=== PATIENT | female | born 1970 | race American Indian/Alaskan Native ===

== ENCOUNTER 2016-05-31 12:26 | Emergency (ER) | payer MEDICAID ==
--- NOTE | 2016-05-31 15:35 | XRay Report ---
LEFT FINGERS, 3 VIEWS History: Swelling and pain of the fifth digit. Findings: There is mild motion artifact on the oblique and lateral views. No acute osseous injury or joint pathology is appreciated. The soft tissues are unremarkable. Impression: No acute osseous injury is appreciated.
--- NOTE | 2016-05-31 15:49 | Emergency Department Report ---
HPI - General Chief Complaint: Extremity Injury, Upper Time Seen by Provider: 05/31/16 13:55 - HPI HPI: 46-year-old female presents today with the left little finger pain post fall on Saturday. Patient states she landed on her left hand. Denies head injury or loss of consciousness. Positive for pain and swelling. Describes her pain as 7 out of 10 throbbing ache that is worse with movement. Denies numbness, weakness or paresthesias. Denies trying any medication for pain relief. Denies fever, chills, nausea, vomiting, chest pain, shortness of breath, abdominal pain. ED Past Medical Hx - Past Medical History Previous Medical History?: No - Surgical History Past Surgical History?: No - Social History Smoking Status: Current Every Day Smoker Substance Use Type: Alcohol, Marijuana - Medications Home Medications: Home Medications Medication Instructions Recorded Confirmed Last Taken Type HYDROcodone/APAP 5-325 [[place] 1 each PO Q6HR PRN #14 tablet 11/30/13 Unknown Rx 5/325] Misoprostol [Cytotec] 400 mcg PO Q4H #3 tablet 11/30/13 Unknown Rx Sulfamethoxazole/Trimethoprim 1 each PO BID #14 tablet 11/30/13 Unknown Rx [Bactrim Ds] Acetaminophen/Codeine [Tylenol #3] 1 tab PO Q6H PRN #20 tab 09/27/14 Unknown Rx Naproxen [Naprosyn] 500 mg PO BID #30 tablet 05/31/16 Unknown Rx ED Review of Systems ROS: Stated complaint: CANNOT BEND LEFT PINKY Other details as noted in HPI Constitutional: denies: chills, fever, malaise Eyes: denies: eye pain ENT: denies: ear pain, throat pain, congestion Respiratory: denies: cough, shortness of breath, wheezing Cardiovascular: denies: chest pain, palpitations Endocrine: no symptoms reported Gastrointestinal: denies: abdominal pain, nausea, vomiting Musculoskeletal: joint swelling, arthralgia Neurological: denies: headache, weakness, numbness, paresthesias Physical Exam - Physical Exam Vital Signs: Vital Signs 05/31/16 13:17 Temperature 98.4 F Pulse Rate 103 H Respiratory 16 Rate Blood Pressure 129/81 O2 Sat by Pulse 98 Oximetry Physical Exam: GENERAL: The patient is well-developed and well-nourished. Patient is in NAD. HEAD: Normocephalic. Atraumatic. CHEST/LUNGS: Clear to auscultation throughout. HEART/CARDIOVASCULAR: Regular rate and rhythm. ABDOMEN: Abdomen is soft, nontender. No guarding or rebound tenderness. LEFT HAND: Tenderness to palpation and swelling noted over the PIP joint of left fifth digit. Limited fifth digit range of motion. Range of motion otherwise intact. Normal sensation. 2 point discrimination intact. Peripheral pulses intact. Capillary refill less than 2 seconds. NEURO: Alert and oriented x 3. Normal gait. ED Course Vital Signs 05/31/16 13:17 Temperature 98.4 F Pulse Rate 103 H Respiratory 16 Rate Blood Pressure 129/81 O2 Sat by Pulse 98 Oximetry ED Medical Decision Making - Lab Data Vital Signs 05/31/16 05/31/16 13:17 16:11 Temperature 98.4 F Pulse Rate 103 H 91 H Respiratory 16 16 Rate Blood Pressure 129/81 Blood Pressure 126/78 [Right] O2 Sat by Pulse 98 99 Oximetry - Radiology Data Radiology results: report reviewed LEFT FINGERS, 3 VIEWS History: Swelling and pain of the fifth digit. Findings: There is mild motion artifact on the oblique and lateral views. No acute osseous injury or joint pathology is appreciated. The soft tissues are unremarkable. Impression: No acute osseous injury is appreciated. - Medical Decision Making 46-year-old female presents today with left fifth digit pain and swelling post fall. Her x-ray results reveal no fracture or dislocation. A referral for orthopedic has been provided. Patient is in no acute distress at this time. She will be discharged home and is encouraged to follow up with a primary care provider. She will be sent home on naproxen and is encouraged to return to the emergency room for any worsening symptoms. Critical care attestation.: If time is entered above; I have spent that time in minutes in the direct care of this critically ill patient, excluding procedure time. ED Disposition Clinical Impression: Finger pain Qualifiers: Laterality: left Qualified Code(s): M79.645 - Pain in left finger(s) Disposition: DISCHARGED TO HOME OR SELFCARE Is pt being admited?: No Does the pt Need Aspirin: No Condition: Stable Instructions: Finger Sprain (ED) Additional Instructions: Follow-up with primary care provider. Return to the emergency department if symptoms worsen. Prescriptions: Naproxen [Naprosyn] 500 mg PO BID #30 tablet Referrals: Jennifer HEARD [Other] - 3-5 Days [facility] [Outside] - 3-5 Days HOME CRAWFORD MD [Staff Physician] - 3-5 Days Forms: Work/School Release Form(ED) Time of Disposition: 15:50
[2016-05-31 16:12] VITALS: BP 126/78
== END 2016-05-31 16:11 | disposition home or self-care (01) ==
LOC: ED 12:26
DX: M79.645 Pain in left finger(s) (principal); F12.10 Cannabis abuse, uncomplicated; F17.200 Nicotine dependence, unspecified, uncomplicated; W18.30XA Fall on same level, unspecified, initial encounter; Y93.9 Activity, unspecified; Y92.9 Unspecified place or not applicable; Y99.9 Unspecified external cause status
CPT/HCPCS: 99283

== ENCOUNTER 2017-01-17 19:49 | Emergency (ER) | payer MEDICAID ==
[2017-01-17 21:55] VITALS: BP 118/67
[2017-01-17] MEDS ORDERED: TYLENOL ONE (22:07)
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
== END 2017-01-17 23:50 | disposition home or self-care (01) ==
LOC: ED 19:49
DX: S01.81XA Laceration without foreign body of other part of head, initial encounter (principal); F12.10 Cannabis abuse, uncomplicated; X58.XXXA Exposure to other specified factors, initial encounter; Y93.9 Activity, unspecified; Y92.9 Unspecified place or not applicable; Y99.9 Unspecified external cause status
CPT/HCPCS: 99282

== ENCOUNTER 2019-12-12 16:50 | Emergency (ER) | payer MEDICAID ==
[2019-12-12 17:12] VITALS: BP 130/76
--- NOTE | 2019-12-12 20:35 | Emergency Department Report ---
Minor Respiratory - HPI Chief Complaint: Upper Respiratory Infection Stated Complaint: CP/COUGH/SOB Time Seen by Provider: 12/12/19 20:07 Duration: 1 week Minor Respiratory: Yes Cough, No Rhinorrhea, No Sore Throat, No Able to Tolerate Fluids, No Ear Pain, No Sick Contacts, No Hemoptysis, No Chest Pain, No Shortness of Breath, No Fever Other History: 49-year-old -Sw[place] female comes to the emergency room stating that she is have coughing and bites all over her body.. She reports her cough is been going on for about a week and the bites has been gone over for quite a while. Patient states that she was using [id number] calamine lotion and hydrocortisone but has ran out of her hydrocortisone. Patient has not taken anything for her cough. Patient denies any shortness of breath no fever no chest pain no nausea no vomiting no diarrhea. Patient does report she smokes weed and smokes crack. Patient is unaware of her last menstrual period. Patient reports she does not have a primary care provider and was unaware that she had insurance. ED Review of Systems ROS: Stated complaint: CP/COUGH/SOB Other details as noted in HPI Comment: All other systems reviewed and negative ED Past Medical Hx - Past Medical History Previous Medical History?: No - Surgical History Past Surgical History?: No - Social History Smoking Status: Never Smoker Substance Use Type: Alcohol, Marijuana - Medications Home Medications: Home Medications Medication Instructions Recorded Confirmed Last Taken Type HYDROcodone/APAP 5-325 [[place] 1 each PO Q6HR PRN #14 tablet 11/30/13 Unknown Rx 5/325] Sulfamethoxazole/Trimethoprim 1 each PO BID #14 tablet 11/30/13 Unknown Rx [Bactrim Ds] miSOPROStoL [Cytotec] 400 mcg PO Q4H #3 tablet 11/30/13 Unknown Rx Acetaminophen/Codeine [Tylenol #3] 1 tab PO Q6H PRN #20 tab 09/27/14 Unknown Rx Naproxen [Naprosyn] 500 mg PO BID #30 tablet 05/31/16 Unknown Rx Ibuprofen [Motrin] 800 mg PO Q8HR PRN #30 tablet 06/25/16 Unknown Rx traMADoL [Ultram 50 MG tab] 50 mg PO Q6HR PRN #20 tablet 06/25/16 Unknown Rx Acetaminophen [Acetaminophen TAB] 500 mg PO Q6HR PRN #30 tablet 01/17/17 Unknown Rx Minor Respiratory Exam - Exam General: Vital signs noted. No distress. Alert and acting appropriately. HEENT: Yes Moist Mucous Membranes, No Pharyngeal Erythema, No Pharyngeal Exudates, No Rhinorrhea, No Conjuctival Injection, No Frontal Tenderness, No Maxillary Tenderness Ear: Neither EAC Pain, Neither EAC Discharge Neck: Yes Supple, No Adenopathy Lungs: Yes Good Air Exchange, No Wheezes, No Ronchi, No Stridor, No Cough, No Labored Respirations, No Retractions, No Use of Accessory Muscles, No Other Abnormal Lung Sounds Heart: Yes Regular, No Murmur Abdomen: Yes Normal Bowel Sounds, No Tenderness, No Peritoneal Signs Skin: Yes Rash (Multiple scars ankles arms and lower back appears to be bedbug bites) Neurologic: Alert and oriented, no deficits. Musculoskeletal: Unremarkable. ED Course Vital Signs 12/12/19 17:11 Temperature 97.9 F Pulse Rate 86 Respiratory 16 Rate Blood Pressure 130/76 [Right] O2 Sat by Pulse 99 Oximetry ED Medical Decision Making - Medical Decision Making 49-year-old -[place] female comes to the emergency room stating that she is have coughing and bites all over her body.. She reports her cough is been going on for about a week and the bites has been gone over for quite a while. Patient states that she was using [id number] calamine lotion and hydrocortisone but has ran out of her hydrocortisone. Patient has not taken anything for her cough. Patient denies any shortness of breath no fever no chest pain no nausea no vomiting no diarrhea. Patient does report she smokes weed and smokes crack. Patient is unaware of her last menstrual period. Patient reports she does not have a primary care provider and was unaware that she had insurance. Patient has a normal chest and cardiac exam. Her oxygenation is at 99% on room air respiratory 16. She is not tachycardic and 86 and blood pressure is 130/76. Recommend patient to follow-up with her primary care provider. I did discuss with patient that smoking crack can cause her to pick at little bumps to make some sores and then they can turn into scars. Critical care attestation.: If time is entered above; I have spent that time in minutes in the direct care of this critically ill patient, excluding procedure time. ED Disposition Clinical Impression: Cough, Bug bite Disposition: DC-01 TO HOME OR SELFCARE Is pt being admited?: No Does the pt Need Aspirin: No Condition: Stable Instructions: Acute Cough (ED) Additional Instructions: Please take [id number] Robitussin as needed for coughing. I recommend [id number] hydrocortisone for the itching of the lesions. Encouraged to stay away from using crack cocaine and smoking weed as this can exacerbate her issues. Follow-up with a primary care provider I have listed 1 below for your convenience. Referrals: PRIMARY CARE [Primary Care Provider] - 3-5 Days [facility] [Provider Group] - 3-5 Days
== END 2019-12-13 00:05 | disposition home or self-care (01) ==
LOC: ED 16:50
DX: T14.8XXA Other injury of unspecified body region, initial encounter (principal); R05 Cough; F12.10 Cannabis abuse, uncomplicated; Z79.1 Long term (current) use of non-steroidal anti-inflammatories (NSAID); Z79.899 Other long term (current) drug therapy; W57.XXXA Bitten or stung by nonvenomous insect and other nonvenomous arthropods, initial encounter; Y93.89 Activity, other specified; Y92.89 Other specified places as the place of occurrence of the external cause; Y99.8 Other external cause status
CPT/HCPCS: 99282

== ENCOUNTER 2020-02-29 12:51 | Emergency (ER) | payer MEDICAID ==
[2020-02-29 13:50] VITALS: BP 120/66
--- NOTE | 2020-02-29 13:54 | Emergency Department Report ---
- General Chief complaint: Skin Rash Stated complaint: INSECT BITE Time Seen by Provider: 02/29/20 13:47 Source: patient Mode of arrival: Ambulatory Limitations: No Limitations - History of Present Illness Initial comments: This is a 49-year-old female nontoxic well in appearance with no signs of distress presents to the ED with complaint of right lower leg thigh redness and pain. Stated is not sure what bite him. Patient denies any swelling, pus, or drainage. Patient denies any other symptoms. Denies any fever, chills, headache, nausea, vomiting, chest pain or SOB. Denies any allergies. MD complaint: insect bite/sting -: days(s) Location: RLE Severity: mild Severity scale (0 -10): 3 Quality: aching Consistency: constant Improves with: none Worsens with: none Context: none Associated symptoms: denies other symptoms - Related Data Previous Rx's Medication Instructions Recorded Last Taken Type HYDROcodone/APAP 5-325 [[place] 1 each PO Q6HR PRN #14 tablet 11/30/13 Unknown Rx 5/325] Sulfamethoxazole/Trimethoprim 1 each PO BID #14 tablet 11/30/13 Unknown Rx [Bactrim Ds] miSOPROStoL [Cytotec] 400 mcg PO Q4H #3 tablet 11/30/13 Unknown Rx Acetaminophen/Codeine [Tylenol #3] 1 tab PO Q6H PRN #20 tab 09/27/14 Unknown Rx Naproxen [Naprosyn] 500 mg PO BID #30 tablet 05/31/16 Unknown Rx Ibuprofen [Motrin] 800 mg PO Q8HR PRN #30 tablet 06/25/16 Unknown Rx traMADoL [Ultram 50 MG tab] 50 mg PO Q6HR PRN #20 tablet 06/25/16 Unknown Rx Acetaminophen [Acetaminophen TAB] 500 mg PO Q6HR PRN #30 tablet 01/17/17 Unknown Rx Sulfamethoxazole/Trimethoprim 1 each PO BID #14 tablet 02/29/20 Unknown Rx [Bactrim DS TAB] Allergies Allergy/AdvReac Type Severity Reaction Status Date / Time No Known Allergies Allergy Verified 11/29/13 20:18 Abscess Boil HPI - HPI Chief Complaint: Skin Rash Stated Complaint: INSECT BITE Time Seen by Provider: 02/29/20 13:47 Home Medications: Previous Rx's Medication Instructions Recorded Last Taken Type HYDROcodone/APAP 5-325 [[place] 1 each PO Q6HR PRN #14 tablet 11/30/13 Unknown Rx 5/325] Sulfamethoxazole/Trimethoprim 1 each PO BID #14 tablet 11/30/13 Unknown Rx [Bactrim Ds] miSOPROStoL [Cytotec] 400 mcg PO Q4H #3 tablet 11/30/13 Unknown Rx Acetaminophen/Codeine [Tylenol #3] 1 tab PO Q6H PRN #20 tab 09/27/14 Unknown Rx Naproxen [Naprosyn] 500 mg PO BID #30 tablet 05/31/16 Unknown Rx Ibuprofen [Motrin] 800 mg PO Q8HR PRN #30 tablet 06/25/16 Unknown Rx traMADoL [Ultram 50 MG tab] 50 mg PO Q6HR PRN #20 tablet 06/25/16 Unknown Rx Acetaminophen [Acetaminophen TAB] 500 mg PO Q6HR PRN #30 tablet 01/17/17 Unknown Rx Sulfamethoxazole/Trimethoprim 1 each PO BID #14 tablet 02/29/20 Unknown Rx [Bactrim DS TAB] Allergies/Adverse Reactions: Allergies Allergy/AdvReac Type Severity Reaction Status Date / Time No Known Allergies Allergy Verified 11/29/13 20:18 ED Review of Systems ROS: Stated complaint: INSECT BITE Other details as noted in HPI Constitutional: denies: chills, fever Eyes: denies: eye pain, eye discharge, vision change ENT: denies: ear pain, throat pain Respiratory: denies: cough, shortness of breath, wheezing Cardiovascular: denies: chest pain, palpitations Endocrine: no symptoms reported Gastrointestinal: denies: abdominal pain, nausea, diarrhea Genitourinary: denies: urgency, dysuria, discharge Musculoskeletal: denies: back pain, joint swelling, arthralgia Skin: denies: rash, lesions Neurological: denies: headache, weakness, paresthesias Psychiatric: denies: anxiety, depression Hematological/Lymphatic: denies: easy bleeding, easy bruising ED Past Medical Hx - Past Medical History Previous Medical History?: No - Surgical History Past Surgical History?: No - Social History Smoking Status: Current Every Day Smoker Substance Use Type: Alcohol, Cocaine, Marijuana - Medications Home Medications: Home Medications Medication Instructions Recorded Confirmed Last Taken Type HYDROcodone/APAP 5-325 [[place] 1 each PO Q6HR PRN #14 tablet 11/30/13 Unknown Rx 5/325] Sulfamethoxazole/Trimethoprim 1 each PO BID #14 tablet 11/30/13 Unknown Rx [Bactrim Ds] miSOPROStoL [Cytotec] 400 mcg PO Q4H #3 tablet 11/30/13 Unknown Rx Acetaminophen/Codeine [Tylenol #3] 1 tab PO Q6H PRN #20 tab 09/27/14 Unknown Rx Naproxen [Naprosyn] 500 mg PO BID #30 tablet 05/31/16 Unknown Rx Ibuprofen [Motrin] 800 mg PO Q8HR PRN #30 tablet 06/25/16 Unknown Rx traMADoL [Ultram 50 MG tab] 50 mg PO Q6HR PRN #20 tablet 06/25/16 Unknown Rx Acetaminophen [Acetaminophen TAB] 500 mg PO Q6HR PRN #30 tablet 01/17/17 U nknown Rx Sulfamethoxazole/Trimethoprim 1 each PO BID #14 tablet 02/29/20 Unknown Rx [Bactrim DS TAB] ED Physical Exam - General Limitations: No Limitations General appearance: alert, in no apparent distress - Head Head exam: Present: atraumatic, normocephalic - Eye Eye exam: Present: normal appearance - Neck Neck exam: Present: normal inspection, full ROM. Absent: tenderness, meningismus, lymphadenopathy - Respiratory Respiratory exam: Absent: respiratory distress - Cardiovascular Cardiovascular Exam: Present: regular rate - Extremities Exam Extremities exam: Present: full ROM, tenderness, normal capillary refill. Absent: joint swelling, calf tenderness - Expanded Lower Extremity Exam Right Hip exam: Present: normal inspection, full ROM. Absent: tenderness Upper Leg exam: Present: normal inspection, full ROM. Absent: tenderness Knee exam: Present: normal inspection, full ROM. Absent: tenderness Lower Leg exam: Present: normal inspection, full ROM, tenderness, erythema. Absent: swelling, abrasion, laceration, ecchymosis, deformity, crepidus, dislocation, palpable cord, Bob's sign Ankle exam: Present: normal inspection, full ROM. Absent: tenderness, swelling Foot/Toe exam: Present: normal inspection, full ROM. Absent: tenderness, swelling Neuro vascular tendon exam: Present: no vascular compromise Gait: Positive: observed and normal 1 - 2 x 3 cm cellulitis present - Back Exam Back exam: Present: full ROM - Neurological Exam Neurological exam: Present: alert, oriented X3, normal gait - Psychiatric Psychiatric exam: Present: normal affect, normal mood - Skin Skin exam: Present: warm, dry, intact, normal color. Absent: rash ED Course Vital Signs 02/29/20 13:48 Temperature 98 F Pulse Rate 106 H Respiratory 18 Rate Blood Pressure 120/66 O2 Sat by Pulse 98 Oximetry - Reevaluation(s) Reevaluation #1: 02/29/20 13:52 Patient is speaking in full sentences with no signs of distress noted. ED Medical Decision Making - Medical Decision Making This is a 49-year-old female that presents with cellulitis. Patient is stable and was examined by me. The area of redness and cellulitis has been outlined with a permanent marker. Patient will be discharged with Bactrim. Patient was instructed to Follow-up with a primary care doctor in 3-5 days or if symptoms worsen and continue return to emergency room as soon as possible. At time of discharge, the patient does not seem toxic or ill in appearance. No acute signs of distress noted. Patient agrees to discharge treatment plan of care. No further questions noted by the patient. Critical care attestation.: If time is entered above; I have spent that time in minutes in the direct care of this critically ill patient, excluding procedure time. ED Disposition Clinical Impression: Cellulitis Qualifiers: Site of cellulitis: extremity Site of cellulitis of extremity: lower extremity Laterality: right Qualified Code(s): L03.115 - Cellulitis of right lower limb Disposition: - TO HOME OR SELFCARE Is pt being admited?: No Does the pt Need Aspirin: No Condition: Stable Instructions: Cellulitis, Adult Additional Instructions: Follow-up with a primary care doctor in 3-5 days or if symptoms worsen and continue return to emergency room as soon as possible. Prescriptions: Sulfamethoxazole/Trimethoprim [Bactrim DS TAB] 1 each PO BID #14 tablet Referrals: PRIMARY CAREMD [Referring] - 3-5 Days FITO RODRIGUEZ MD [Staff Physician] - 3-5 Days
== END 2020-02-29 14:25 | disposition home or self-care (01) ==
LOC: ED 12:51
DX: L03.115 Cellulitis of right lower limb (principal); F17.200 Nicotine dependence, unspecified, uncomplicated; F12.10 Cannabis abuse, uncomplicated; F14.10 Cocaine abuse, uncomplicated; W57.XXXA Bitten or stung by nonvenomous insect and other nonvenomous arthropods, initial encounter; Y93.89 Activity, other specified; Y92.89 Other specified places as the place of occurrence of the external cause; Y99.8 Other external cause status
CPT/HCPCS: 99282

== ENCOUNTER 2020-03-16 14:42 | Emergency (ER) | payer MEDICAID ==
[2020-03-16 15:32] VITALS: BP 120/76
--- NOTE | 2020-03-16 16:32 | Emergency Department Report ---
- General Chief complaint: Animal Bite Stated complaint: LT LEG SPIDER BITE Source: patient Mode of arrival: Ambulatory Limitations: No Limitations - History of Present Illness Initial comments: The patient was evaluated in the emergency department for symptoms described in the history of present illness. He/she was evaluated in the context of the global COVID-19 pandemic, which necessitated consideration that the patient might be at risk for infection with the virus that causes COVID-19. Institutional protocols and algorithms that pertain to the evaluation of patients at risk for COVID-19 are in a state of rapid change based on information released by regulatory bodies including the CDC and federal and state organizations. These policies and algorithms were followed during the patient's care in the emergency department. Please note that these policies, procedures and recommendations changed on a rapid basis. 50-year-old -[place] female presents to the emergency room complaining of a left lower leg boil/spider bite she has had for few days. Patient denies any fever chills no nausea no vomiting. Patient has been here in multiple times for the same complaint. Patient states that she misplaced her medication. MD complaint: insect bite/sting, abscess/boil Tetanus Up to Date: yes Location: L[facility] Severity scale (0 -10): 3 Quality: aching Consistency: constant Improves with: none Worsens with: palpation Context: none Treatments Prior to Arrival: none - Related Data Previous Rx's Medication Instructions Recorded Last Taken Type HYDROcodone/APAP 5-325 [[place] 1 each PO Q6HR PRN #14 tablet 11/30/13 Unknown Rx 5/325] Sulfamethoxazole/Trimethoprim 1 each PO BID #14 tablet 11/30/13 Unknown Rx [Bactrim Ds] miSOPROStoL [Cytotec] 400 mcg PO Q4H #3 tablet 11/30/13 Unknown Rx Acetaminophen/Codeine [Tylenol #3] 1 tab PO Q6H PRN #20 tab 09/27/14 Unknown Rx Naproxen [Naprosyn] 500 mg PO BID #30 tablet 05/31/16 Unknown Rx Ibuprofen [Motrin] 800 mg PO Q8HR PRN #30 tablet 06/25/16 Unknown Rx traMADoL [Ultram 50 MG tab] 50 mg PO Q6HR PRN #20 tablet 06/25/16 Unknown Rx Acetaminophen [Acetaminophen TAB] 500 mg PO Q6HR PRN #30 tablet 01/17/17 Unknown Rx Sulfamethoxazole/Trimethoprim 1 each PO BID #14 tablet 02/29/20 Unknown Rx [Bactrim DS TAB] Clindamycin [Clindamycin CAP] 300 mg PO Q8H 10 Days #30 cap 03/16/20 Unknown Rx Allergies Allergy/AdvReac Type Severity Reaction Status Date / Time No Known Allergies Allergy Verified 11/29/13 20:18 Abscess Boil HPI - HPI Chief Complaint: Animal Bite Stated Complaint: LT LEG SPIDER BITE Home Medications: Previous Rx's Medication Instructions Recorded Last Taken Type HYDROcodone/APAP 5-325 [[place] 1 each PO Q6HR PRN #14 tablet 11/30/13 Unknown Rx 5/325] Sulfamethoxazole/Trimethoprim 1 each PO BID #14 tablet 11/30/13 Unknown Rx [Bactrim Ds] miSOPROStoL [Cytotec] 400 mcg PO Q4H #3 tablet 11/30/13 Unknown Rx Acetaminophen/Codeine [Tylenol #3] 1 tab PO Q6H PRN #20 tab 09/27/14 Unknown Rx Naproxen [Naprosyn] 500 mg PO BID #30 tablet 05/31/16 Unknown Rx Ibuprofen [Motrin] 800 mg PO Q8HR PRN #30 tablet 06/25/16 Unknown Rx traMADoL [Ultram 50 MG tab] 50 mg PO Q6HR PRN #20 tablet 06/25/16 Unknown Rx Acetaminophen [Acetaminophen TAB] 500 mg PO Q6HR PRN #30 tablet 01/17/17 Unknown Rx Sulfamethoxazole/Trimethoprim 1 each PO BID #14 tablet 02/29/20 Unknown Rx [Bactrim DS TAB] Clindamycin [Clindamycin CAP] 300 mg PO Q8H 10 Days #30 cap 03/16/20 Unknown Rx Allergies/Adverse Reactions: Allergies Allergy/AdvReac Type Severity Reaction Status Date / Time No Known Allergies Allergy Verified 11/29/13 20:18 ED Review of Systems ROS: Stated complaint: LT LEG SPIDER BITE Other details as noted in HPI Comment: All other systems reviewed and negative ED Past Medical Hx - Past Medical History Previous Medical History?: No - Surgical History Past Surgical History?: No - Social History Smoking Status: Current Every Day Smoker Substance Use Type: Alcohol - Medications Home Medications: Home Medications Medication Instructions Recorded Confirmed Last Taken Type HYDROcodone/APAP 5-325 [[place] 1 each PO Q6HR PRN #14 tablet 11/30/13 Unknown Rx 5/325] Sulfamethoxazole/Trimethoprim 1 each PO BID #14 tablet 11/30/13 Unknown Rx [Bactrim Ds] miSOPROStoL [Cytotec] 400 mcg PO Q4H #3 tablet 11/30/13 Unknown Rx Acetaminophen/Codeine [Tylenol #3] 1 tab PO Q6H PRN #20 tab 09/27/14 Unknown Rx Naproxen [Naprosyn] 500 mg PO BID #30 tablet 05/31/16 Unknown Rx Ibuprofen [Motrin] 800 mg PO Q8HR PRN #30 tablet 06/25/16 Unknown Rx traMADoL [Ultram 50 MG tab] 50 mg PO Q6HR PRN #20 tablet 06/25/16 Unknown Rx Acetaminophen [Acetaminophen TAB] 500 mg PO Q6HR PRN #30 tablet 01/17/17 Unknown Rx Sulfamethoxazole/Trimethoprim 1 each PO BID #14 tablet 02/29/20 Unknown Rx [Bactrim DS TAB] Clindamycin [Clindamycin CAP] 300 mg PO Q8H 10 Days #30 cap 03/16/20 Unknown Rx ED Physical Exam - General Limitations: No Limitations General appearance: alert, in no apparent distress - Head Head exam: Present: atraumatic, normocephalic - Eye Eye exam: Present: normal appearance - ENT ENT exam: Present: mucous membranes moist - Neck Neck exam: Present: normal inspection - Respiratory Respiratory exam: Absent: chest wall tenderness - Cardiovascular Cardiovascular Exam: Present: regular rate, normal rhythm. Absent: systolic murmur, diastolic murmur, rubs, gallop - Back Exam Back exam: Present: normal inspection - Neurological Exam Neurological exam: Present: alert, oriented X3 - Psychiatric Psychiatric exam: Present: normal affect, normal mood - Expanded Skin Exam Expanded Description of rash: Present: tenderness, erythematous, blisters ED Course Vital Signs 03/16/20 15:29 Temperature 97.7 F Pulse Rate 102 H Respiratory 18 Rate Blood Pressure 120/76 O2 Sat by Pulse 99 Oximetry ED Medical Decision Making - Medical Decision Making 50-year-old -[place] female presents to the emergency room complaining of a left boil/spider bite she has had for few days. Patient denies any fever chills no nausea no vomiting. Patient has been here in multiple times for the same complaint. Patient states that she misplaced her medication. Patient was given a another refill for her cellulitis. Critical care attestation.: If time is entered above; I have spent that time in minutes in the direct care of this critically ill patient, excluding procedure time. ED Disposition Clinical Impression: Insect bite, Cellulitis and abscess of left leg Disposition: - TO HOME OR SELFCARE Is pt being admited?: No Does the pt Need Aspirin: No Condition: Stable Additional Instructions: Complete antibiotics as prescribed take your pain medication as needed. Prescriptions: Clindamycin [Clindamycin CAP] 300 mg PO Q8H 10 Days #30 cap Referrals: [facility] [Provider Group] - 3-5 Days
== END 2020-03-16 16:39 | disposition home or self-care (01) ==
LOC: ED 14:42
DX: L02.416 Cutaneous abscess of left lower limb (principal); L03.116 Cellulitis of left lower limb; F17.200 Nicotine dependence, unspecified, uncomplicated
CPT/HCPCS: 99281

== ENCOUNTER 2020-05-07 12:47 | Emergency (ER) | payer MEDICAID ==
[2020-05-07 13:12] VITALS: BP 133/80
--- NOTE | 2020-05-07 14:16 | Emergency Department Report ---
- General Chief complaint: Skin Rash Stated complaint: FLEA/TICK BITES Time Seen by Provider: 05/07/20 14:11 Source: patient Mode of arrival: Ambulatory Limitations: No Limitations - History of Present Illness Initial comments: 50-year-old female she is complaining of her skin itching having small bumps in which she scratches and then they become sores she has multiple sores 1 to the tip of her nose under her chin on her arms and her back and legs. Patient believes that this comes from tick bites as she sleeps in whole old hotels and sometimes in cars. She denies being homeless but states it comes from the places that she chooses to sleep she denies fever no cough no headaches no URI symptoms. She is clean in appearance with clean clothing. She does not appear to be in any distress. MD complaint: rash, insect bite/sting Location: face, neck, back, RUE, R hand, RLE Severity scale (0 -10): 0 Consistency: constant Improves with: none Worsens with: none Context: none Associated symptoms: denies other symptoms Treatments Prior to Arrival: none - Related Data Previous Rx's Medication Instructions Recorded Last Taken Type HYDROcodone/APAP 5-325 [[place] 1 each PO Q6HR PRN #14 tablet 11/30/13 Unknown Rx 5/325] Sulfamethoxazole/Trimethoprim 1 each PO BID #14 tablet 11/30/13 Unknown Rx [Bactrim Ds] miSOPROStoL [Cytotec] 400 mcg PO Q4H #3 tablet 11/30/13 Unknown Rx Acetaminophen/Codeine [Tylenol #3] 1 tab PO Q6H PRN #20 tab 09/27/14 Unknown Rx Naproxen [Naprosyn] 500 mg PO BID #30 tablet 05/31/16 Unknown Rx Ibuprofen [Motrin] 800 mg PO Q8HR PRN #30 tablet 06/25/16 Unknown Rx traMADoL [Ultram 50 MG tab] 50 mg PO Q6HR PRN #20 tablet 06/25/16 Unknown Rx Acetaminophen [Acetaminophen TAB] 500 mg PO Q6HR PRN #30 tablet 01/17/17 Unknown Rx Sulfamethoxazole/Trimethoprim 1 each PO BID #14 tablet 02/29/20 Unknown Rx [Bactrim DS TAB] Clindamycin [Clindamycin CAP] 300 mg PO Q8H 10 Days #30 cap 03/16/20 Unknown Rx Permethrin 5% [Acticin 5% CREAM] 1 applicatio TP ONCE #1 tube 05/07/20 Unknown Rx cephALEXin [Keflex] 500 mg PO Q12HR 10 Days #20 cap 05/07/20 Unknown Rx Allergies Allergy/AdvReac Type Severity Reaction Status Date / Time No Known Allergies Allergy Verified 11/29/13 20:18 Abscess Boil HPI - HPI Chief Complaint: Skin Rash Stated Complaint: FLEA/TICK BITES Time Seen by Provider: 05/07/20 14:11 History: Yes Insect Bite, No Fever, No Pain, No Purulent Drainage, No Numbness, No Foreign Body, No Previous History Home Medications: Previous Rx's Medication Instructions Recorded Last Taken Type HYDROcodone/APAP 5-325 [[place] 1 each PO Q6HR PRN #14 tablet 11/30/13 Unknown Rx 5/325] Sulfamethoxazole/Trimethoprim 1 each PO BID #14 tablet 11/30/13 Unknown Rx [Bactrim Ds] miSOPROStoL [Cytotec] 400 mcg PO Q4H #3 tablet 11/30/13 Unknown Rx Acetaminophen/Codeine [Tylenol #3] 1 tab PO Q6H PRN #20 tab 09/27/14 Unknown Rx Naproxen [Naprosyn] 500 mg PO BID #30 tablet 05/31/16 Unknown Rx Ibuprofen [Motrin] 800 mg PO Q8HR PRN #30 tablet 06/25/16 Unknown Rx traMADoL [Ultram 50 MG tab] 50 mg PO Q6HR PRN #20 tablet 06/25/16 Unknown Rx Acetaminophen [Acetaminophen TAB] 500 mg PO Q6HR PRN #30 tablet 01/17/17 Unknown Rx Sulfamethoxazole/Trimethoprim 1 each PO BID #14 tablet 02/29/20 Unknown Rx [Bactrim DS TAB] Clindamycin [Clindamycin CAP] 300 mg PO Q8H 10 Days #30 cap 03/16/20 Unknown Rx Permethrin 5% [Acticin 5% CREAM] 1 applicatio TP ONCE #1 tube 05/07/20 Unknown Rx cephALEXin [Keflex] 500 mg PO Q12HR 10 Days #20 cap 05/07/20 Unknown Rx Allergies/Adverse Reactions: Allergies Allergy/AdvReac Type Severity Reaction Status Date / Time No Known Allergies Allergy Verified 11/29/13 20:18 ED Review of Systems ROS: Stated complaint: FLEA/TICK BITES Other details as noted in HPI Comment: All other systems reviewed and negative Constitutional: denies: chills, fever ENT: denies: ear pain, throat pain, dental pain, hearing loss, epistaxis, congestion Respiratory: denies: cough, orthopnea, shortness of breath, SOB with exertion, SOB at rest Endocrine: no symptoms reported Gastrointestinal: as per HPI Genitourinary: denies: urgency, dysuria, frequency, hematuria, discharge, abnormal menses, dyspareunia Skin: rash, lesions Neurological: denies: headache, numbness, paresthesias, abnormal gait, vertigo ED Past Medical Hx - Past Medical History Previous Medical History?: Yes Additional medical history: Skin rash - Surgical History Past Surgical History?: No - Social History Smoking Status: Current Every Day Smoker Substance Use Type: Alcohol, Marijuana - Medications Home Medications: Home Medications Medication Instructions Recorded Confirmed Last Taken Type HYDROcodone/APAP 5-325 [[place] 1 each PO Q6HR PRN #14 tablet 11/30/13 Unknown Rx 5/325] Sulfamethoxazole/Trimethoprim 1 each PO BID #14 tablet 11/30/13 Unknown Rx [Bactrim Ds] miSOPROStoL [Cytotec] 400 mcg PO Q4H #3 tablet 11/30/13 Unknown Rx Acetaminophen/Codeine [Tylenol #3] 1 tab PO Q6H PRN #20 tab 09/27/14 Unknown Rx Naproxen [Naprosyn] 500 mg PO BID #30 tablet 05/31/16 Unknown Rx Ibuprofen [Motrin] 800 mg PO Q8HR PRN #30 tablet 06/25/16 Unknown Rx traMADoL [Ultram 50 MG tab] 50 mg PO Q6HR PRN #20 tablet 06/25/16 Unknown Rx Acetaminophen [Acetaminophen TAB] 500 mg PO Q6HR PRN #30 tablet 01/17/17 Unknown Rx Sulfamethoxazole/Trimethoprim 1 each PO BID #14 tablet 02/29/20 Unknown Rx [Bactrim DS TAB] Clindamycin [Clindamycin CAP] 300 mg PO Q8H 10 Days #30 cap 03/16/20 Unknown Rx Permethrin 5% [Acticin 5% CREAM] 1 applicatio TP ONCE #1 tube 05/07/20 Unknown Rx cephALEXin [Keflex] 500 mg PO Q12HR 10 Days #20 cap 05/07/20 Unknown Rx ED Physical Exam - General Limitations: No Limitations General appearance: alert, in no apparent distress - Head Head exam: Present: atraumatic - Eye Eye exam: Present: normal appearance. Absent: conjunctival injection - ENT ENT exam: Present: normal exam, mucous membranes moist - Neck Neck exam: Absent: lymphadenopathy - Respiratory Respiratory exam: Present: normal lung sounds bilaterally - Cardiovascular Cardiovascular Exam: Present: regular rate, normal heart sounds - Extremities Exam Extremities exam: Present: normal inspection - Neurological Exam Neurological exam: Present: alert, oriented X3 - Skin Skin exam: Present: warm, dry, other (Small dots noted on her right hand. She has some sores to her neck back lower extremity tip of her nose that are in several stages of healing appears to be from picking at her skin. Patient states that they will start with small little dots and she is picks at it and developed sores). Absent: cyanosis, diaphoretic ED Course Vital Signs 05/07/20 13:09 Temperature 98.7 F Pulse Rate 104 H Respiratory 18 Rate Blood Pressure 133/80 O2 Sat by Pulse 100 Oximetry ED Medical Decision Making - Medical Decision Making 50-year-old female with lesions to multiple sites possibly take for flea bite states that she sleeps in old hotels sometimes in cars when she develops these small lesions that after scratching and picking they become sores. Discussed possible leak possibly could be scabies plan to treat with permethrin and Keflex - Differential Diagnosis Insect multiple insect bites infected scabies bedbugs Critical Care Time: No Critical care attestation.: If time is entered above; I have spent that time in minutes in the direct care of this critically ill patient, excluding procedure time. ED Disposition Clinical Impression: Scabies infestation Insect bites Qualifiers: Encounter type: sequela Site of insect bite: unspecified site Qualified Cod e(s): W57.XXXS - Bitten or stung by nonvenomous insect and other nonvenomous arthropods, sequela Disposition: DC-01 TO HOME OR SELFCARE Is pt being admited?: No Does the pt Need Aspirin: No Condition: Stable Instructions: Insect Bite, Adult, [id number], Scabies, Adult Additional Instructions: Wash all clothing. With hot water. Apply permethrin your face to the sole of your feet leave on overnight and wash off in the shower in the morning. Also consider washing all your beddings. Take antibiotic as prescribed. Follow-up with your primary care doctor or local clinic. Okay to take 1 to 2 tablets of Benadryl as needed for itching every 4-6 hours Prescriptions: Permethrin 5% [Acticin 5% CREAM] 1 applicatio TP ONCE #1 tube cephALEXin [Keflex] 500 mg PO Q12HR 10 Days #20 cap Referrals: FITO RODRIGUEZ MD [Staff Physician] - 3-5 Days Time of Disposition: 14:26
== END 2020-05-07 14:46 | disposition home or self-care (01) ==
LOC: ED 12:47
DX: T14.8XXA Other injury of unspecified body region, initial encounter (principal); F17.200 Nicotine dependence, unspecified, uncomplicated; F12.10 Cannabis abuse, uncomplicated; Z79.1 Long term (current) use of non-steroidal anti-inflammatories (NSAID); Z79.899 Other long term (current) drug therapy; B86 Scabies; W57.XXXA Bitten or stung by nonvenomous insect and other nonvenomous arthropods, initial encounter; Y93.89 Activity, other specified; Y92.89 Other specified places as the place of occurrence of the external cause; Y99.8 Other external cause status
CPT/HCPCS: 99282

== ENCOUNTER 2020-07-11 18:49 | Emergency (ER) | payer MEDICAID ==
[2020-07-11 19:13] VITALS: BP 128/78
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
== END 2020-07-11 20:20 | disposition home or self-care (01) ==
LOC: ED 18:49
DX: M54.5 Low back pain (principal); L03.113 Cellulitis of right upper limb; F17.200 Nicotine dependence, unspecified, uncomplicated; F14.10 Cocaine abuse, uncomplicated; Z79.899 Other long term (current) drug therapy
CPT/HCPCS: 99282

== ENCOUNTER 2020-08-17 14:01 | Emergency (ER) | payer MEDICAID | END 2020-08-17 19:05 | disposition left against medical advice (07) | LOC: ED 14:01 | DX: R10.2 Pelvic and perineal pain (principal); Z53.21 Procedure and treatment not carried out due to patient leaving prior to being seen by health care provider ==

== ENCOUNTER 2020-08-22 16:14 | Emergency (ER) | payer MEDICAID | END 2020-08-22 19:11 | disposition left against medical advice (07) | LOC: ED 16:14 | DX: Z53.21 Procedure and treatment not carried out due to patient leaving prior to being seen by health care provider (principal) ==

== ENCOUNTER 2020-10-10 16:37 | Emergency (ER) | payer MEDICAID ==
--- NOTE | 2020-10-10 18:53 | Emergency Department Report ---
- General Chief complaint: Skin Rash Stated complaint: FLEA BITES Time Seen by Provider: 10/10/20 18:22 Source: patient Mode of arrival: Ambulatory Limitations: No Limitations - History of Present Illness Initial comments: 50 year old female present to ED c/o possible flea bites. Pt states that she has the sores throughout her body which she thinks are being caused by flea bites. She states they have been coming and going for several months and she sometimes has to pick at them to get the fleas out. She reports some new area to her hands and legs in past 1 - 2 weeks. She states the areas are sore and puritic in nature. She states she does have stray cats at her house. complaint: rash, insect bite/sting -: month(s) - Related Data Previous Rx's Medication Instructions Recorded Last Taken Type HYDROcodone/APAP 5-325 [[place] 1 each PO Q6HR PRN #14 tablet 11/30/13 Unknown Rx 5/325] Sulfamethoxazole/Trimethoprim 1 each PO BID #14 tablet 11/30/13 Unknown Rx [Bactrim Ds] miSOPROStoL [Cytotec] 400 mcg PO Q4H #3 tablet 11/30/13 Unknown Rx Acetaminophen/Codeine [Tylenol #3] 1 tab PO Q6H PRN #20 tab 09/27/14 Unknown Rx Naproxen [Naprosyn] 500 mg PO BID #30 tablet 05/31/16 Unknown Rx Ibuprofen [Motrin] 800 mg PO Q8HR PRN #30 tablet 06/25/16 Unknown Rx traMADoL [Ultram 50 MG tab] 50 mg PO Q6HR PRN #20 tablet 06/25/16 Unknown Rx Acetaminophen [Acetaminophen TAB] 500 mg PO Q6HR PRN #30 tablet 01/17/17 Unknown Rx Sulfamethoxazole/Trimethoprim 1 each PO BID #14 tablet 02/29/20 Unknown Rx [Bactrim DS TAB] Clindamycin [Clindamycin CAP] 300 mg PO Q8H 10 Days #30 cap 03/16/20 Unknown Rx Permethrin 5% [Acticin 5% CREAM] 1 applicatio TP ONCE #1 tube 05/07/20 Unknown Rx Clindamycin [Clindamycin CAP] 300 mg PO Q8H #21 cap 07/11/20 Unknown Rx Naproxen 500 mg PO Q12H PRN #12 tablet 07/11/20 Unknown Rx cephALEXin [Keflex] 500 mg PO Q12HR 10 Days #20 cap 10/10/20 Unknown Rx predniSONE [Deltasone] 40 mg PO QDAY #10 tab 10/10/20 Unknown Rx Allergies Allergy/AdvReac Type Severity Reaction Status Date / Time No Known Allergies Allergy Verified 07/11/20 19:06 Abscess Boil HPI - HPI Chief Complaint: Skin Rash Stated Complaint: FLEA BITES Time Seen by Provider: 10/10/20 18:22 Home Medications: Previous Rx's Medication Instructions Recorded Last Taken Type HYDROcodone/APAP 5-325 [[place] 1 each PO Q6HR PRN #14 tablet 11/30/13 Unknown Rx 5/325] Sulfamethoxazole/Trimethoprim 1 each PO BID #14 tablet 11/30/13 Unknown Rx [Bactrim Ds] miSOPROStoL [Cytotec] 400 mcg PO Q4H #3 tablet 11/30/13 Unknown Rx Acetaminophen/Codeine [Tylenol #3] 1 tab PO Q6H PRN #20 tab 09/27/14 Unknown Rx Naproxen [Naprosyn] 500 mg PO BID #30 tablet 05/31/16 Unknown Rx Ibuprofen [Motrin] 800 mg PO Q8HR PRN #30 tablet 06/25/16 Unknown Rx traMADoL [Ultram 50 MG tab] 50 mg PO Q6HR PRN #20 tablet 06/25/16 Unknown Rx Acetaminophen [Acetaminophen TAB] 500 mg PO Q6HR PRN #30 tablet 01/17/17 Unknown Rx Sulfamethoxazole/Trimethoprim 1 each PO BID #14 tablet 02/29/20 Unknown Rx [Bactrim DS TAB] Clindamycin [Clindamycin CAP] 300 mg PO Q8H 10 Days #30 cap 03/16/20 Unknown Rx Permethrin 5% [Acticin 5% CREAM] 1 applicatio TP ONCE #1 tube 05/07/20 Unknown Rx Clindamycin [Clindamycin CAP] 300 mg PO Q8H #21 cap 07/11/20 Unknown Rx Naproxen 500 mg PO Q12H PRN #12 tablet 07/11/20 Unknown Rx cephALEXin [Keflex] 500 mg PO Q12HR 10 Days #20 cap 10/10/20 Unknown Rx predniSONE [Deltasone] 40 mg PO QDAY #10 tab 10/10/20 Unknown Rx Allergies/Adverse Reactions: Allergies Allergy/AdvReac Type Severity Reaction Status Date / Time No Known Allergies Allergy Verified 07/11/20 19:06 ED Review of Systems ROS: Stated complaint: FLEA BITES Other details as noted in HPI Comment: All other systems reviewed and negative Constitutional: denies: chills, fever Respiratory: denies: cough, shortness of breath, SOB with exertion, SOB at rest, wheezing Cardiovascular: denies: chest pain, palpitations Skin: rash Neurological: denies: headache, weakness, numbness, paresthesias, confusion, abnormal gait, vertigo Psychiatric: denies: anxiety, depression Hematological/Lymphatic: denies: easy bleeding, easy bruising ED Past Medical Hx - Past Medical History Previous Medical History?: No Additional medical history: Skin rash - Surgical History Past Surgical History?: No - Social History Smoking Status: Current Every Day Smoker Substance Use Type: Cocaine - Medications Home Medications: Home Medications Medication Instructions Recorded Confirmed Last Taken Type HYDROcodone/APAP 5-325 [[place] 1 each PO Q6HR PRN #14 tablet 11/30/13 Unknown Rx 5/325] Sulfamethoxazole/Trimethoprim 1 each PO BID #14 tablet 11/30/13 Unknown Rx [Bactrim Ds] miSOPROStoL [Cytotec] 400 mcg PO Q4H #3 tablet 11/30/13 Unknown Rx Acetaminophen/Codeine [Tylenol #3] 1 tab PO Q6H PRN #20 tab 09/27/14 Unknown Rx Naproxen [Naprosyn] 500 mg PO BID #30 tablet 05/31/16 Unknown Rx Ibuprofen [Motrin] 800 mg PO Q8HR PRN #30 tablet 06/25/16 Unknown Rx traMADoL [Ultram 50 MG tab] 50 mg PO Q6HR PRN #20 tablet 06/25/16 Unknown Rx Acetaminophen [Acetaminophen TAB] 500 mg PO Q6HR PRN #30 tablet 01/17/17 Unknown Rx Sulfamethoxazole/Trimethoprim 1 each PO BID #14 tablet 02/29/20 Unknown Rx [Bactrim DS TAB] Clindamycin [Clindamycin CAP] 300 mg PO Q8H 10 Days #30 cap 03/16/20 Unknown Rx Permethrin 5% [Acticin 5% CREAM] 1 applicatio TP ONCE #1 tube 05/07/20 Unknown Rx Clindamycin [Clindamycin CAP] 300 mg PO Q8H #21 cap 07/11/20 Unknown Rx Naproxen 500 mg PO Q12H PRN #12 tablet 07/11/20 Unknown Rx cephALEXin [Keflex] 500 mg PO Q12HR 10 Days #20 cap 10/10/20 Unknown Rx predniSONE [Deltasone] 40 mg PO QDAY #10 tab 10/10/20 Unknown Rx ED Physical Exam - General Limitations: No Limitations General appearance: alert, anxious - Head Head exam: Present: atraumatic, normocephalic, normal inspection - Eye Eye exam: Present: normal appearance, PERRL, EOMI Pupils: Present: normal accommodation - Neck Neck exam: Present: normal inspection - Respiratory Respiratory exam: Absent: respiratory distress - Cardiovascular Cardiovascular Exam: Present: regular rate - Neurological Exam Neurological exam: Present: alert, oriented X3, CN II-XII intact, normal gait - Psychiatric Psychiatric exam: Present: normal affect, normal mood - Skin Skin exam: Present: rash, other (multiple small to medium sized hyperpigmented sores/excoriation noted scattered throughout entire body some of varying stages of healing but no associated induration, fluctuance or cellulitis or pus drainage to any 1 of those areas noted.) ED Course Vital Signs 10/10/20 17:43 Temperature 98.1 F Pulse Rate 98 H Respiratory 18 Rate Blood Pressure 122/59 O2 Sat by Pulse 99 Oximetry ED Medical Decision Making - Medical Decision Making The patient is anxious but overall, is alert and in no distress. The patient has a normal mental status and is neurologically intact. The rash does not have petechiae or purpura. There are no mucous membrane lesions, no signs of abscess and no bullae. The patient appears well, and has no signs of systemic toxicity. The history, exam, and current condition do not demonstrate signs of sepsis or serious bacterial infection, [place] spotted fever, meningitis, meningococcemia, Lyme's disease, toxic shock syndrome or other significant systemic illness requiring further treatment, testing or consultation in the emergency department. Patient will be started on antibiotics to cover for any possible secondary bacterial infection but most importantly inform patient that she should not pick at her skin and that she needs to follow-up with a sock mender. Patient expressed understanding of instructions and agree with plan. The vital signs have been stable. The patient's condition is stable and appropriate for discharge. The patient will pursue further outpatient evaluation with the primary care physician or other designated or consulting physician as indicated in the discharge instructions. Critical care attestation.: If time is entered above; I have spent that time in minutes in the direct care of this critically ill patient, excluding procedure time. ED Disposition Clinical Impression: Insect bites, Excoriation (skin-picking) disorder Disposition: TO HOME OR SELFCARE Is pt being admited?: No Does the pt Need Aspirin: No Condition: Stable Instructions: Skin-Picking Disorder, Insect Bite, Adult, [id number] Additional Instructions: Take the keflex as prescribed. Take the prednisone as prescribed. It is important that you follow up with Mash Filter Operator as discussed. It is important that you try not to pick at your skin. Return to ED if worse. Prescriptions: predniSONE [Deltasone] 40 mg PO QDAY #10 tab cephALEXin [Keflex] 500 mg PO Q12HR 10 Days #20 cap Referrals: FITO RODRIGUEZ MD [Staff Physician] - 3-5 Days Lump, and Bump [Other] - 3-5 Days (M[facility] Filter Operator) Time of Disposition: 18:57
== END 2020-10-10 20:00 | disposition home or self-care (01) ==
LOC: ED 16:37
CPT/HCPCS: 99281

== ENCOUNTER 2020-11-17 11:32 | Emergency (ER) | payer MEDICAID ==
[2020-11-17 12:39] VITALS: BP 132/85
--- NOTE | 2020-11-17 15:17 | Emergency Department Report ---
- General Chief complaint: Skin/Abscess/Foreign Body Stated complaint: SPIDER BITE Time Seen by Provider: 11/17/20 15:12 Source: patient Mode of arrival: Ambulatory Limitations: No Limitations - History of Present Illness Initial comments: Patient is a 50-year-old female presents emergency room with complaints of possible fleabites and she is concerned that she may have a spider bite. She reports that there are stray cats around her house. She has associated itching and states that she has been scratching frequently. She denies any drainage, fever, chills, nausea, vomiting, diarrhea. No past medical history. No allergies to medications. - Related Data Previous Rx's Medication Instructions Recorded Last Taken Type HYDROcodone/APAP 5-325 [[place] 1 each PO Q6HR PRN #14 tablet 11/30/13 Unknown Rx 5/325] Sulfamethoxazole/Trimethoprim 1 each PO BID #14 tablet 11/30/13 Unknown Rx [Bactrim Ds] miSOPROStoL [Cytotec] 400 mcg PO Q4H #3 tablet 11/30/13 Unknown Rx Acetaminophen/Codeine [Tylenol #3] 1 tab PO Q6H PRN #20 tab 09/27/14 Unknown Rx Naproxen [Naprosyn] 500 mg PO BID #30 tablet 05/31/16 Unknown Rx Ibuprofen [Motrin] 800 mg PO Q8HR PRN #30 tablet 06/25/16 Unknown Rx traMADoL [Ultram 50 MG tab] 50 mg PO Q6HR PRN #20 tablet 06/25/16 Unknown Rx Acetaminophen [Acetaminophen TAB] 500 mg PO Q6HR PRN #30 tablet 01/17/17 Unknown Rx Sulfamethoxazole/Trimethoprim 1 each PO BID #14 tablet 02/29/20 Unknown Rx [Bactrim DS TAB] Clindamycin [Clindamycin CAP] 300 mg PO Q8H 10 Days #30 cap 03/16/20 Unknown Rx Permethrin 5% [Acticin 5% CREAM] 1 applicatio TP ONCE #1 tube 05/07/20 Unknown Rx Clindamycin [Clindamycin CAP] 300 mg PO Q8H #21 cap 07/11/20 Unknown Rx Naproxen 500 mg PO Q12H PRN #12 tablet 07/11/20 Unknown Rx cephALEXin [Keflex] 500 mg PO Q12HR 10 Days #20 cap 10/10/20 Unknown Rx predniSONE [Deltasone] 40 mg PO QDAY #10 tab 10/10/20 Unknown Rx Mupirocin [Bactroban 2% OINT] 1 applic TP TID #1 tube 11/17/20 Unknown Rx Permethrin 5% [Acticin 5% CREAM] 1 applicatio TP ONCE #1 tube 11/17/20 Unknown Rx cephALEXin [Keflex] 500 mg PO QID 7 Days #28 cap 11/17/20 Unknown Rx Allergies Allergy/AdvReac Type Severity Reaction Status Date / Time No Known Allergies Allergy Verified 11/17/20 12:36 Abscess Boil HPI - HPI Chief Complaint: Skin/Abscess/Foreign Body Stated Complaint: SPIDER BITE Time Seen by Provider: 11/17/20 15:12 Home Medications: Previous Rx's Medication Instructions Recorded Last Taken Type HYDROcodone/APAP 5-325 [[place] 1 each PO Q6HR PRN #14 tablet 11/30/13 Unknown Rx 5/325] Sulfamethoxazole/Trimethoprim 1 each PO BID #14 tablet 11/30/13 Unknown Rx [Bactrim Ds] miSOPROStoL [Cytotec] 400 mcg PO Q4H #3 tablet 11/30/13 Unknown Rx Acetaminophen/Codeine [Tylenol #3] 1 tab PO Q6H PRN #20 tab 09/27/14 Unknown Rx Naproxen [Naprosyn] 500 mg PO BID #30 tablet 05/31/16 Unknown Rx Ibuprofen [Motrin] 800 mg PO Q8HR PRN #30 tablet 06/25/16 Unknown Rx traMADoL [Ultram 50 MG tab] 50 mg PO Q6HR PRN #20 tablet 06/25/16 Unknown Rx Acetaminophen [Acetaminophen TAB] 500 mg PO Q6HR PRN #30 tablet 01/17/17 Unknown Rx Sulfamethoxazole/Trimethoprim 1 each PO BID #14 tablet 02/29/20 Unknown Rx [Bactrim DS TAB] Clindamycin [Clindamycin CAP] 300 mg PO Q8H 10 Days #30 cap 03/16/20 Unknown Rx Permethrin 5% [Acticin 5% CREAM] 1 applicatio TP ONCE #1 tube 05/07/20 Unknown Rx Clindamycin [Clindamycin CAP] 300 mg PO Q8H #21 cap 07/11/20 Unknown Rx Naproxen 500 mg PO Q12H PRN #12 tablet 07/11/20 Unknown Rx cephALEXin [Keflex] 500 mg PO Q12HR 10 Days #20 cap 10/10/20 Unknown Rx predniSONE [Deltasone] 40 mg PO QDAY #10 tab 10/10/20 Unknown Rx Mupirocin [Bactroban 2% OINT] 1 applic TP TID #1 tube 11/17/20 Unknown Rx Permethrin 5% [Acticin 5% CREAM] 1 applicatio TP ONCE #1 tube 11/17/20 Unknown Rx cephALEXin [Keflex] 500 mg PO QID 7 Days #28 cap 11/17/20 Unknown Rx Allergies/Adverse Reactions: Allergies Allergy/AdvReac Type Severity Reaction Status Date / Time No Known Allergies Allergy Verified 11/17/20 12:36 ED Review of Systems ROS: Stated complaint: SPIDER BITE Other details as noted in HPI Comment: All other systems reviewed and negative ED Past Medical Hx - Past Medical History Previous Medical History?: No Additional medical history: Skin rash - Surgical History Past Surgical History?: No - Social History Smoking Status: Current Every Day Smoker Substance Use Type: Cocaine - Medications Home Medications: Home Medications Medication Instructions Recorded Confirmed Last Taken Type HYDROcodone/APAP 5-325 [[place] 1 each PO Q6HR PRN #14 tablet 11/30/13 Unknown Rx 5/325] Sulfamethoxazole/Trimethoprim 1 each PO BID #14 tablet 11/30/13 Unknown Rx [Bactrim Ds] miSOPROStoL [Cytotec] 400 mcg PO Q4H #3 tablet 11/30/13 Unknown Rx Acetaminophen/Codeine [Tylenol #3] 1 tab PO Q6H PRN #20 tab 09/27/14 Unknown Rx Naproxen [Naprosyn] 500 mg PO BID #30 tablet 05/31/16 Unknown Rx Ibuprofen [Motrin] 800 mg PO Q8HR PRN #30 tablet 06/25/16 Unknown Rx traMADoL [Ultram 50 MG tab] 50 mg PO Q6HR PRN #20 tablet 06/25/16 Unknown Rx Acetaminophen [Acetaminophen TAB] 500 mg PO Q6HR PRN #30 tablet 01/17/17 Unknown Rx Sulfamethoxazole/Trimethoprim 1 each PO BID #14 tablet 02/29/20 Unknown Rx [Bactrim DS TAB] Clindamycin [Clindamycin CAP] 300 mg PO Q8H 10 Days #30 cap 03/16/20 Unknown Rx Permethrin 5% [Acticin 5% CREAM] 1 applicatio TP ONCE #1 tube 05/07/20 Unknown Rx Clindamycin [Clindamycin CAP] 300 mg PO Q8H #21 cap 07/11/20 Unknown Rx Naproxen 500 mg PO Q12H PRN #12 tablet 07/11/20 Unknown Rx cephALEXin [Keflex] 500 mg PO Q12HR 10 Days #20 cap 10/10/20 Unknown Rx predniSONE [Deltasone] 40 mg PO QDAY #10 tab 10/10/20 Unknown Rx Mupirocin [Bactroban 2% OINT] 1 applic TP TID #1 tube 11/17/20 Unknown Rx Permethrin 5% [Acticin 5% CREAM] 1 applicatio TP ONCE #1 tube 11/17/20 Unknown Rx cephALEXin [Keflex] 500 mg PO QID 7 Days #28 cap 11/17/20 Unknown Rx ED Physical Exam - General Limitations: No Limitations General appearance: alert, in no apparent distress - Head Head exam: Present: atraumatic, normocephalic - Eye Eye exam: Present: normal appearance - ENT ENT exam: Present: mucous membranes moist - Respiratory Respiratory exam: Absent: respiratory distress, accessory muscle use - Neurological Exam Neurological exam: Present: alert, oriented X3 - Psychiatric Psychiatric exam: Present: normal affect, normal mood - Skin Skin exam: Present: warm, dry, other (multiple excoriations present diffusely, there is mild erythema approximately 1 cm surrouding an exoriation on the forehead and the right lower leg, there is no induration, no drainage, no fluctuance, no necrosis ) ED Course Vital Signs 11/17/20 12:38 Temperature 98.5 F Pulse Rate 89 Respiratory 16 Rate Blood Pressure 132/85 O2 Sat by Pulse 100 Oximetry ED Medical Decision Making - Medical Decision Making Patient is a 50-year-old female presents emergency room with complaints of possible fleabites and she is concerned that she may have a spider bite. She reports that there are stray cats around her house. She has associated itching and states that she has been scratching frequently. She denies any drainage, fever, chills, nausea, vomiting, diarrhea. No past medical history. No allergies to medications. Vitals are normal. On exam:multiple excoriations present diffusely, there is mild erythema approximately 1 cm surrouding an exoriation on the forehead and the right lower leg, there is no induration, no drainage, no fluctuance, no necrosis. Examination appears insistent with excoriations and very mild early cellulitis. No signs of abscess or significant cellulitis at this time. Given prescriptions for medications. Advised patient Please use medication as prescribed. Please avoid scratching. Follow-up with your primary care doctor. Return to emergency room for new or worsening symptoms. Critical care attestation.: If time is entered above; I have spent that time in minutes in the direct care of this critically ill patient, excluding procedure time. ED Disposition Clinical Impression: Excoriation Cellulitis Qualifiers: Site of cellulitis: face Qualified Code(s): L03.211 - Cellulitis of face Disposition: - TO HOME OR SELFCARE Is pt being admited?: No Does the pt Need Aspirin: No Condition: Stable Instructions: Cellulitis, Adult Additional Instructions: Please use medication as prescribed. Please avoid scratching. Follow-up with your primary care doctor. Return to emergency room for new or worsening symptoms. Prescriptions: Permethrin 5% [Acticin 5% CREAM] 1 applicatio TP ONCE #1 tube Mupirocin [Bactroban 2% OINT] 1 applic TP TID #1 tube cephALEXin [Keflex] 500 mg PO QID 7 Days #28 cap Referrals: PRIMARY CARE [Primary Care Provider] - 2-3 Days Time of Disposition: 15:16 Print Language: [place] ISLAND[place]
== END 2020-11-17 15:30 | disposition home or self-care (01) ==
LOC: ED 11:32
DX: L98.1 Factitial dermatitis (principal); L03.211 Cellulitis of face; F17.200 Nicotine dependence, unspecified, uncomplicated; F12.10 Cannabis abuse, uncomplicated
CPT/HCPCS: 99281

== ENCOUNTER 2020-12-14 10:34 | Emergency (ER) | payer MEDICAID ==
[2020-12-14 13:37] VITALS: BP 121/68
--- NOTE | 2020-12-14 13:37 | Emergency Department Report ---
- General Chief complaint: Eye Problems Stated complaint: FB IN LEFT EYE Time Seen by Provider: 12/14/20 13:27 Source: patient Mode of arrival: Ambulatory Limitations: No Limitations - History of Present Illness Initial comments: Patient is a 50-year-old female presents emergency room with complaints of possible fleabites that began a couple weeks ago. States that she has been i tching and scratching. Patient reports that she believes one flew into her eye but then flew back out. She denies any eye pain currently. She denies any foreign body sensation of the eye. She denies any vision changes or eye redness. She denies any eye drainage. She denies any fever, skin drainage, vomiting, diarrhea, chills, body aches. No past medical history. No allergies to medications. - Related Data Previous Rx's Medication Instructions Recorded Last Taken Type HYDROcodone/APAP 5-325 [[place] 1 each PO Q6HR PRN #14 tablet 11/30/13 Unknown Rx 5/325] Sulfamethoxazole/Trimethoprim 1 each PO BID #14 tablet 11/30/13 Unknown Rx [Bactrim Ds] miSOPROStoL [Cytotec] 400 mcg PO Q4H #3 tablet 11/30/13 Unknown Rx Acetaminophen/Codeine [Tylenol #3] 1 tab PO Q6H PRN #20 tab 09/27/14 Unknown Rx Naproxen [Naprosyn] 500 mg PO BID #30 tablet 05/31/16 Unknown Rx Ibuprofen [Motrin] 800 mg PO Q8HR PRN #30 tablet 06/25/16 Unknown Rx traMADoL [Ultram 50 MG tab] 50 mg PO Q6HR PRN #20 tablet 06/25/16 Unknown Rx Acetaminophen [Acetaminophen TAB] 500 mg PO Q6HR PRN #30 tablet 01/17/17 Unknown Rx Sulfamethoxazole/Trimethoprim 1 each PO BID #14 tablet 02/29/20 Unknown Rx [Bactrim DS TAB] Clindamycin [Clindamycin CAP] 300 mg PO Q8H 10 Days #30 cap 03/16/20 Unknown Rx Permethrin 5% [Acticin 5% CREAM] 1 applicatio TP ONCE #1 tube 05/07/20 Unknown Rx Clindamycin [Clindamycin CAP] 300 mg PO Q8H #21 cap 07/11/20 Unknown Rx Naproxen 500 mg PO Q12H PRN #12 tablet 07/11/20 Unknown Rx cephALEXin [Keflex] 500 mg PO Q12HR 10 Days #20 cap 10/10/20 Unknown Rx predniSONE [Deltasone] 40 mg PO QDAY #10 tab 10/10/20 Unknown Rx Mupirocin [Bactroban 2% OINT] 1 applic TP TID #1 tube 11/17/20 Unknown Rx Permethrin 5% [Acticin 5% CREAM] 1 applicatio TP ONCE #1 tube 11/17/20 Unknown Rx cephALEXin [Keflex] 500 mg PO QID 7 Days #28 cap 11/17/20 Unknown Rx Permethrin 5% [Acticin 5% CREAM] 1 applicatio TP ONCE #1 tube 12/14/20 Unknown Rx Allergies Allergy/AdvReac Type Severity Reaction Status Date / Time No Known Allergies Allergy Verified 12/14/20 11:51 Abscess Boil HPI - HPI Chief Complaint: Eye Problems Stated Complaint: FB IN LEFT EYE Time Seen by Provider: 12/14/20 13:27 Home Medications: Previous Rx's Medication Instructions Recorded Last Taken Type HYDROcodone/APAP 5-325 [[place] 1 each PO Q6HR PRN #14 tablet 11/30/13 Unknown Rx 5/325] Sulfamethoxazole/Trimethoprim 1 each PO BID #14 tablet 11/30/13 Unknown Rx [Bactrim Ds] miSOPROStoL [Cytotec] 400 mcg PO Q4H #3 tablet 11/30/13 Unknown Rx Acetaminophen/Codeine [Tylenol #3] 1 tab PO Q6H PRN #20 tab 09/27/14 Unknown Rx Naproxen [Naprosyn] 500 mg PO BID #30 tablet 05/31/16 Unknown Rx Ibuprofen [Motrin] 800 mg PO Q8HR PRN #30 tablet 06/25/16 Unknown Rx traMADoL [Ultram 50 MG tab] 50 mg PO Q6HR PRN #20 tablet 06/25/16 Unknown Rx Acetaminophen [Acetaminophen TAB] 500 mg PO Q6HR PRN #30 tablet 01/17/17 Unknown Rx Sulfamethoxazole/Trimethoprim 1 each PO BID #14 tablet 02/29/20 Unknown Rx [Bactrim DS TAB] Clindamycin [Clindamycin CAP] 300 mg PO Q8H 10 Days #30 cap 03/16/20 Unknown Rx Permethrin 5% [Acticin 5% CREAM] 1 applicatio TP ONCE #1 tube 05/07/20 Unknown Rx Clindamycin [Clindamycin CAP] 300 mg PO Q8H #21 cap 07/11/20 Unknown Rx Naproxen 500 mg PO Q12H PRN #12 tablet 07/11/20 Unknown Rx cephALEXin [Keflex] 500 mg PO Q12HR 10 Days #20 cap 10/10/20 Unknown Rx predniSONE [Deltasone] 40 mg PO QDAY #10 tab 10/10/20 Unknown Rx Mupirocin [Bactroban 2% OINT] 1 applic TP TID #1 tube 11/17/20 Unknown Rx Permethrin 5% [Acticin 5% CREAM] 1 applicatio TP ONCE #1 tube 11/17/20 Unknown Rx cephALEXin [Keflex] 500 mg PO QID 7 Days #28 cap 11/17/20 Unknown Rx Permethrin 5% [Acticin 5% CREAM] 1 applicatio TP ONCE #1 tube 12/14/20 Unknown Rx Allergies/Adverse Reactions: Allergies Allergy/AdvReac Type Severity Reaction Status Date / Time No Known Allergies Allergy Verified 12/14/20 11:51 ED Review of Systems ROS: Stated complaint: FB IN LEFT EYE Other details as noted in HPI Comment: All other systems reviewed and negative ED Past Medical Hx - Past Medical History Additional medical history: Skin rash - Social History Smoking Status: Current Every Day Smoker Substance Use Type: Cocaine - Medications Home Medications: Home Medications Medication Instructions Recorded Confirmed Last Taken Type HYDROcodone/APAP 5-325 [[place] 1 each PO Q6HR PRN #14 tablet 11/30/13 Unknown Rx 5/325] Sulfamethoxazole/Trimethoprim 1 each PO BID #14 tablet 11/30/13 Unknown Rx [Bactrim Ds] miSOPROStoL [Cytotec] 400 mcg PO Q4H #3 tablet 11/30/13 Unknown Rx Acetaminophen/Codeine [Tylenol #3] 1 tab PO Q6H PRN #20 tab 09/27/14 Unknown Rx Naproxen [Naprosyn] 500 mg PO BID #30 tablet 05/31/16 Unknown Rx Ibuprofen [Motrin] 800 mg PO Q8HR PRN #30 tablet 06/25/16 Unknown Rx traMADoL [Ultram 50 MG tab] 50 mg PO Q6HR PRN #20 tablet 06/25/16 Unknown Rx Acetaminophen [Acetaminophen TAB] 500 mg PO Q6HR PRN #30 tablet 01/17/17 Unknown Rx Sulfamethoxazole/Trimethoprim 1 each PO BID #14 tablet 02/29/20 Unknown Rx [Bactrim DS TAB] Clindamycin [Clindamycin CAP] 300 mg PO Q8H 10 Days #30 cap 03/16/20 Unknown Rx Permethrin 5% [Acticin 5% CREAM] 1 applicatio TP ONCE #1 tube 05/07/20 Unknown Rx Clindamycin [Clindamycin CAP] 300 mg PO Q8H #21 cap 07/11/20 Unknown Rx Naproxen 500 mg PO Q12H PRN #12 tablet 07/11/20 Unknown Rx cephALEXin [Keflex] 500 mg PO Q12HR 10 Days #20 cap 10/10/20 Unknown Rx predniSONE [Deltasone] 40 mg PO QDAY #10 tab 10/10/20 Unknown Rx Mupirocin [Bactroban 2% OINT] 1 applic TP TID #1 tube 11/17/20 Unknown Rx Permethrin 5% [Acticin 5% CREAM] 1 applicatio TP ONCE #1 tube 11/17/20 Unknown Rx cephALEXin [Keflex] 500 mg PO QID 7 Days #28 cap 11/17/20 Unknown Rx Permethrin 5% [Acticin 5% CREAM] 1 applicatio TP ONCE #1 tube 12/14/20 Unknown Rx ED Physical Exam - General Limitations: No Limitations General appearance: alert, in no apparent distress - Head Head exam: Present: atraumatic, normocephalic - Eye Eye exam: Present: normal appearance, PERRL, EOMI. Absent: scleral icterus, conjunctival injection, nystagmus, periorbital swelling, periorbital tenderness Pupils: Present: normal accommodation - ENT ENT exam: Present: mucous membranes moist - Respiratory Respiratory exam: Absent: respiratory distress, accessory muscle use - Neurological Exam Neurological exam: Present: alert, oriented X3 - Psychiatric Psychiatric exam: Present: normal affect, normal mood - Skin Skin exam: Present: warm, dry, other (multiple excoriations diffusely, no erythema, no drainage, no induration, no increased warmth) ED Course Vital Signs 12/14/20 13:32 Temperature 98.1 F Pulse Rate 97 H Respiratory 16 Rate Blood Pressure 121/68 [Right] O2 Sat by Pulse 98 Oximetry ED Medical Decision Making - Medical Decision Making Patient is a 50-year-old female presents emergency room with complaints of possible fleabites that began a couple weeks ago. States that she has been itching and scratching. Patient reports that she believes one flew into her eye but then flew back out. She denies any eye pain currently. She denies any for eign body sensation of the eye. She denies any vision changes or eye redness. She denies any eye drainage. She denies any fever, skin drainage, vomiting, diarrhea, chills, body aches. No past medical history. No allergies to medications. No conjunctival injection, no visualized foreign bodies, EOMI, PERRLA, no periorbital edema or erythema, she denies any eye pain, she denies any foreign body sensation, she denies any vision changes. Skin examination:multiple excoriations diffusely, no erythema, no drainage, no induration, no increased warmth. No signs of cellulitis or abscess at this time. No signs of emergent skin condition. Patient will be given prescription for permethrin and discussed the importance of outpatient dermatology follow-up. Also discussed with patient to stop scratching at the skin. Advised patient Please use medication as prescribed. Please do not put medication anywhere near the eyes. Follow-up with a primary care doctor. Follow-up with a molded goods operator. Return to emergency room for any new or worsening symptoms. Critical care attestation.: If time is entered above; I have spent that time in minutes in the direct care of this critically ill patient, excluding procedure time. ED Disposition Clinical Impression: Excoriation Flea bite Qualifiers: Encounter type: initial encounter Qualified Code(s): W57.XXXA - Bitten or stung by nonvenomous insect and other nonvenomous arthropods, initial encounter Disposition: 01 HOME / SELF CARE / HOMELESS Is pt being admited?: No Does the pt Need Aspirin: No Condition: Stable Additional Instructions: Please use medication as prescribed. Please do not put medication anywhere near the eyes. Follow-up with a primary care doctor. Follow-up with a molded goods operator. Return to emergency room for any new or worsening symptoms. molded goods operator: [employer] in [place], [place] Address: [address] [place] [address] Delmis Antoine MD [employer] in [place], [place] Address: [address] [facility], [place] [address] Dr. Jeremiah Brink Address: [address], [place] [address] Prescriptions: Permethrin 5% [Acticin 5% CREAM] 1 applicatio TP ONCE #1 tube Referrals: FITO RODRIGUEZ MD [Staff Physician] - 3-5 Days [facility] [Provider Group] - 3-5 Days PRIMARY CARE, [Primary Care Provider] - 3-5 Days Time of Disposition: 13:35 Print Language: MAORI
== END 2020-12-14 14:49 | disposition home or self-care (01) ==
LOC: ED 10:34
DX: S00.212A Abrasion of left eyelid and periocular area, initial encounter (principal); W57.XXXA Bitten or stung by nonvenomous insect and other nonvenomous arthropods, initial encounter; F17.200 Nicotine dependence, unspecified, uncomplicated; R21 Rash and other nonspecific skin eruption; X58.XXXA Exposure to other specified factors, initial encounter; Y93.89 Activity, other specified; Y92.89 Other specified places as the place of occurrence of the external cause; Y99.8 Other external cause status
CPT/HCPCS: 99281

== ENCOUNTER 2021-01-22 16:17 | Emergency (ER) | payer MEDICAID | END 2021-01-22 17:50 | disposition left against medical advice (07) | LOC: ED 16:17 | DX: S90.561A Insect bite (nonvenomous), right ankle, initial encounter (principal); Z53.21 Procedure and treatment not carried out due to patient leaving prior to being seen by health care provider; W57.XXXA Bitten or stung by nonvenomous insect and other nonvenomous arthropods, initial encounter; Y93.89 Activity, other specified; Y92.89 Other specified places as the place of occurrence of the external cause; Y99.8 Other external cause status ==

== ENCOUNTER 2021-11-17 13:49 | Emergency (ER) | payer MEDICAID ==
[2021-11-17 14:06] VITALS: BP 138/82
== END 2021-11-18 22:35 | disposition left against medical advice (07) ==
LOC: ED 13:49
DX: M54.9 Dorsalgia, unspecified (principal); Z53.21 Procedure and treatment not carried out due to patient leaving prior to being seen by health care provider

== ENCOUNTER 2021-11-22 04:45 | Emergency (ER) | payer MEDICAID ==
[2021-11-22] MEDS ORDERED: ACETAMINOPHEN 325 MG TAB PO ONE (04:50)
[2021-11-22] MEDS ORDERED: dexAMETHasone 4 MG/ML VIAL IM ONE (09:35)
[2021-11-22] MEDS ORDERED: AMOXICILLIN 500 MG CAP PO ONE (09:35)
[2021-11-22] MEDS ORDERED: IBUPROFEN 800 MG TAB PO ONE (09:36)
--- NOTE | 2021-11-22 09:36 | Emergency Department Report ---
Minor Respiratory - HPI Chief Complaint: Sore Throat Stated Complaint: SORE THROAT Time Seen by Provider: 11/22/21 09:34 Duration: 3 Days Pain Location: Throat Severity: mild Minor Respiratory: Yes Sore Throat, Yes Able to Tolerate Fluids, Yes Fever, No Rhinorrhea, No Ear Pain, No Cough, No Sick Contacts, No Hemoptysis, No Chest Pain, No Shortness of Breath Other History: 51 yo comes to ER with sore throat. She had subjective fever at home. Found to be febrile on triage. No cough. No abd pain. No dysuria. Only co is sore throat. Pt controlling secretions/taking po and NAD on exam. ED Review of Systems ROS: Stated complaint: SORE THROAT Other details as noted in HPI Comment: All other systems reviewed and negative ED Past Medical Hx - Past Medical History Previous Medical History?: No Additional medical history: Skin rash - Surgical History Past Surgical History?: No - Family History Family history: no significant - Social History Smoking Status: Former Smoker Substance Use Type: None - Medications Home Medications: Home Medications Medication Instructions Recorded Confirmed Last Taken Type HYDROcodone/APAP 5-325 [[place] 1 each PO Q6HR PRN #14 tablet 11/30/13 Unknown Rx 5/325] Sulfamethoxazole/Trimethoprim 1 each PO BID #14 tablet 11/30/13 Unknown Rx [Bactrim Ds] miSOPROStoL [Cytotec] 400 mcg PO Q4H #3 tablet 11/30/13 Unknown Rx Acetaminophen/Codeine [Tylenol #3] 1 tab PO Q6H PRN #20 tab 09/27/14 Unknown Rx Naproxen [Naprosyn] 500 mg PO BID #30 tablet 05/31/16 Unknown Rx Ibuprofen [Motrin] 800 mg PO Q8HR PRN #30 tablet 06/25/16 Unknown Rx traMADoL [Ultram 50 MG tab] 50 mg PO Q6HR PRN #20 tablet 06/25/16 Unknown Rx Acetaminophen [Acetaminophen TAB] 500 mg PO Q6HR PRN #30 tablet 01/17/17 Unknown Rx Sulfamethoxazole/Trimethoprim 1 each PO BID #14 tablet 02/29/20 Unknown Rx [Bactrim DS TAB] Clindamycin [Clindamycin CAP] 300 mg PO Q8H 10 Days #30 cap 03/16/20 Unknown Rx Permethrin 5% [Acticin 5% CREAM] 1 applicatio TP ONCE #1 tube 05/07/20 Unknown Rx Clindamycin [Clindamycin CAP] 300 mg PO Q8H #21 cap 07/11/20 Unknown Rx Naproxen 500 mg PO Q12H PRN #12 tablet 07/11/20 Unknown Rx cephALEXin [Keflex] 500 mg PO Q12HR 10 Days #20 cap 10/10/20 Unknown Rx predniSONE [Deltasone] 40 mg PO QDAY #10 tab 10/10/20 Unknown Rx Mupirocin [Bactroban 2% OINT] 1 applic TP TID #1 tube 11/17/20 Unknown Rx Permethrin 5% [Acticin 5% CREAM] 1 applicatio TP ONCE #1 tube 11/17/20 Unknown Rx cephALEXin [Keflex] 500 mg PO QID 7 Days #28 cap 11/17/20 Unknown Rx Permethrin 5% [Acticin 5% CREAM] 1 applicatio TP ONCE #1 tube 12/14/20 Unknown Rx Amoxicillin [Trimox CAP] 500 mg PO BID #20 capsule 11/22/21 Unknown Rx Minor Respiratory Exam - Exam General: Vital signs noted. No distress. Alert and acting appropriately. HEENT: Yes Pharyngeal Exudates, Yes Moist Mucous Membranes, No Pharyngeal Erythema, No Rhinorrhea, No Conjuctival Injection, No Frontal Tenderness, No Maxillary Tenderness Ear: Neither TM Bulge, Neither TM Erythema, Neither EAC Pain, Neither EAC Discharge Neck: Yes Supple, No Adenopathy Lungs: Yes Good Air Exchange, No Wheezes, No Ronchi, No Stridor, No Cough, No Labored Respirations, No Retractions, No Use of Accessory Muscles, No Other Abnormal Lung Sounds Heart: Yes Regular, No Murmur Abdomen: Yes Normal Bowel Sounds, No Tenderness, No Peritoneal Signs Skin: No Rash, No Edema Neurologic: Alert and oriented, no deficits. Musculoskeletal: Unremarkable. ED Course Vital Signs 11/22/21 04:51 Temperature 102.7 F H Pulse Rate 107 H Respiratory 20 Rate Blood Pressure 154/81 O2 Sat by Pulse 97 Oximetry ED Medical Decision Making - Medical Decision Making Vital Signs 11/22/21 04:51 Temperature 102.7 F H Pulse Rate 107 H Respiratory 20 Rate Blood Pressure 154/81 O2 Sat by Pulse 97 Oximetry medicated with decadron/motrin and amox in ER taking po controlling secretions no abscess on d/c temp 100 oral as taken by ABRAN; HR 80 pt being dc home with dc plan of care including diet, meds, activity and follow up. She verbalizes understanding of plan of care - Differential Diagnosis exudative phayngitis Critical care attestation.: If time is entered above; I have spent that time in minutes in the direct care of this critically ill patient, excluding procedure time. ED Disposition Clinical Impression: Exudative pharyngitis, Fever Disposition: 01 HOME / SELF CARE / HOMELESS Is pt being admited?: No Does the pt Need Aspirin: No Condition: Stable Instructions: Pharyngitis, [id number] Additional Instructions: meds as ordered today until gone motrin or tylenol for pain or fever follow up with pcp in 48 hours for recheck referral below diet and activity as tolerated stay well hydrated with water Prescriptions: Amoxicillin [Trimox CAP] 500 mg PO BID #20 capsule Referrals: FITO RODRIGUEZ MD [Staff Physician] - 3-5 Days Forms: Work/School Release Form(ED) Time of Disposition: 10:06
[2021-11-22 10:35] VITALS: BP 119/64
== END 2021-11-22 14:17 | disposition home or self-care (01) ==
LOC: ED 04:45
DX: J02.9 Acute pharyngitis, unspecified (principal)
CPT/HCPCS: 96372; 99282; J1100

== ENCOUNTER 2021-11-24 07:14 | Emergency (ER) | payer MEDICAID ==
[2021-11-24 11:10] LABS: Bacteria,Urine 1+ /HPF (Negative); Mucus,Urine 3+ /HPF
[2021-11-24 11:45] LABS: Color,Urine DARK YELLOW (Yellow)
[2021-11-24 11:51] LABS: Bilirubin,Urine Negative (Negative); Blood,Urine Negative (Negative)
--- NOTE | 2021-11-24 12:11 | Emergency Department Report ---
ED Female HPI - General Chief complaint: Urogenital-Female Stated complaint: URINATION ISSUES Time Seen by Provider: 11/24/21 09:11 Source: patient Mode of arrival: Ambulatory Limitations: No Limitations - History of Present Illness Initial comments: 51-year-old black female with no past medical history presents to the emergency department for evaluation of few day history of vaginal discharge, fever, and abdominal pain. She denies dysuria, nausea, and vomiting. She states that she has had unprotected sex with both her old partner and a new partner. She also complains of unhealed sores to her face and her bilateral arms and back. MD Complaint: vaginal discharge, possible STD -: Gradual, days(s) (4-5) Location: suprapubic Radiation: non-radiating Severity: moderate Severity scale (0 -10): 5 Quality: aching Consistency: intermittent Worsens with: urination Are you Now?: No (States that she is in menopause and has been for the past several years) Associated Symptoms: vaginal discharge, abdominal pain, fever/chills. denies: vaginal bleeding, nausea/vomiting, headaches, loss of appetite, dysuria, hematuria, rash, seizure, shortness of breath, syncope, weakness - Related Data Sexually active: Yes Previous Rx's Medication Instructions Recorded Last Taken Type HYDROcodone/APAP 5-325 [[place] 1 each PO Q6HR PRN #14 tablet 11/30/13 Unknown Rx 5/325] Sulfamethoxazole/Trimethoprim 1 each PO BID #14 tablet 11/30/13 Unknown Rx [Bactrim Ds] miSOPROStoL [Cytotec] 400 mcg PO Q4H #3 tablet 11/30/13 Unknown Rx Acetaminophen/Codeine [Tylenol #3] 1 tab PO Q6H PRN #20 tab 09/27/14 Unknown Rx Naproxen [Naprosyn] 500 mg PO BID #30 tablet 05/31/16 Unknown Rx Ibuprofen [Motrin] 800 mg PO Q8HR PRN #30 tablet 06/25/16 Unknown Rx traMADoL [Ultram 50 MG tab] 50 mg PO Q6HR PRN #20 tablet 06/25/16 Unknown Rx Acetaminophen [Acetaminophen TAB] 500 mg PO Q6HR PRN #30 tablet 01/17/17 Unknown Rx Sulfamethoxazole/Trimethoprim 1 each PO BID #14 tablet 02/29/20 Unknown Rx [Bactrim DS TAB] Clindamycin [Clindamycin CAP] 300 mg PO Q8H 10 Days #30 cap 03/16/20 Unknown Rx Permethrin 5% [Acticin 5% CREAM] 1 applicatio TP ONCE #1 tube 05/07/20 Unknown Rx Clindamycin [Clindamycin CAP] 300 mg PO Q8H #21 cap 07/11/20 Unknown Rx Naproxen 500 mg PO Q12H PRN #12 tablet 07/11/20 Unknown Rx cephALEXin [Keflex] 500 mg PO Q12HR 10 Days #20 cap 10/10/20 Unknown Rx predniSONE [Deltasone] 40 mg PO QDAY #10 tab 10/10/20 Unknown Rx Mupirocin [Bactroban 2% OINT] 1 applic TP TID #1 tube 11/17/20 Unknown Rx Permethrin 5% [Acticin 5% CREAM] 1 applicatio TP ONCE #1 tube 11/17/20 Unknown Rx cephALEXin [Keflex] 500 mg PO QID 7 Days #28 cap 11/17/20 Unknown Rx Permethrin 5% [Acticin 5% CREAM] 1 applicatio TP ONCE #1 tube 12/14/20 Unknown Rx Amoxicillin [Trimox CAP] 500 mg PO BID #20 capsule 11/22/21 Unknown Rx Mupirocin [Bactroban 2%] 1 applic TP BID #1 tube 11/24/21 Unknown Rx metroNIDAZOLE [Flagyl] 500 mg PO Q12HR 7 Days #14 tab 11/24/21 Unknown Rx Allergies Allergy/AdvReac Type Severity Reaction Status Date / Time No Known Allergies Allergy Verified 11/17/21 14:06 ED Review of Systems ROS: Stated complaint: URINATION ISSUES Other details as noted in HPI Comment: All other systems reviewed and negative Constitutional: denies: chills, fever ENT: denies: congestion Respiratory: denies: shortness of breath Cardiovascular: denies: chest pain, palpitations Gastrointestinal: abdominal pain. denies: nausea, vomiting, diarrhea, hematemesis, melena, hematochezia Genitourinary: discharge. denies: urgency, dysuria, frequency, hematuria Musculoskeletal: denies: back pain Neurological: denies: headache ED Past Medical Hx - Past Medical History Previous Medical History?: No Additional medical history: Skin rash - Surgical History Past Surgical History?: No - Social History Smoking Status: Current Every Day Smoker - Medications Home Medications: Home Medications Medication Instructions Recorded Confirmed Last Taken Type HYDROcodone/APAP 5-325 [[place] 1 each PO Q6HR PRN #14 tablet 11/30/13 Unknown Rx 5/325] Sulfamethoxazole/Trimethoprim 1 each PO BID #14 tablet 11/30/13 Unknown Rx [Bactrim Ds] miSOPROStoL [Cytotec] 400 mcg PO Q4H #3 tablet 11/30/13 Unknown Rx Acetaminophen/Codeine [Tylenol #3] 1 tab PO Q6H PRN #20 tab 09/27/14 Unknown Rx Naproxen [Naprosyn] 500 mg PO BID #30 tablet 05/31/16 Unknown Rx Ibuprofen [Motrin] 800 mg PO Q8HR PRN #30 tablet 06/25/16 Unknown Rx traMADoL [Ultram 50 MG tab] 50 mg PO Q6HR PRN #20 tablet 06/25/16 Unknown Rx Acetaminophen [Acetaminophen TAB] 500 mg PO Q6HR PRN #30 tablet 01/17/17 Unknown Rx Sulfamethoxazole/Trimethoprim 1 each PO BID #14 tablet 02/29/20 Unknown Rx [Bactrim DS TAB] Clindamycin [Clindamycin CAP] 300 mg PO Q8H 10 Days #30 cap 03/16/20 Unknown Rx Permethrin 5% [Acticin 5% CREAM] 1 applicatio TP ONCE #1 tube 05/07/20 Unknown Rx Clindamycin [Clindamycin CAP] 300 mg PO Q8H #21 cap 07/11/20 Unknown Rx Naproxen 500 mg PO Q12H PRN #12 tablet 07/11/20 Unknown Rx cephALEXin [Keflex] 500 mg PO Q12HR 10 Days #20 cap 10/10/20 Unknown Rx predniSONE [Deltasone] 40 mg PO QDAY #10 tab 10/10/20 Unknown Rx Mupirocin [Bactroban 2% OINT] 1 applic TP TID #1 tube 11/17/20 Unknown Rx Permethrin 5% [Acticin 5% CREAM] 1 applicatio TP ONCE #1 tube 11/17/20 Unknown Rx cephALEXin [Keflex] 500 mg PO QID 7 Days #28 cap 11/17/20 Unknown Rx Permethrin 5% [Acticin 5% CREAM] 1 applicatio TP ONCE #1 tube 12/14/20 Unknown Rx Amoxicillin [Trimox CAP] 500 mg PO BID #20 capsule 11/22/21 Unknown Rx Mupirocin [Bactroban 2%] 1 applic TP BID #1 tube 11/24/21 Unknown Rx metroNIDAZOLE [Flagyl] 500 mg PO Q12HR 7 Days #14 tab 11/24/21 Unknown Rx ED Physical Exam - General Limitations: No Limitations General appearance: alert, in no apparent distress - Head Head exam: Present: atraumatic, normocephalic - Eye Eye exam: Present: normal appearance. Absent: conjunctival injection - Neck Neck exam: Present: normal inspection, full ROM. Absent: tenderness - Respiratory Respiratory exam: Present: normal lung sounds bilaterally. Absent: respiratory distress, wheezes, rales, rhonchi, stridor, chest wall tenderness - Cardiovascular Cardiovascular Exam: Present: regular rate, normal heart sounds - GI/Abdominal GI/Abdominal exam: Present: soft, normal bowel sounds. Absent: distended, tenderness, guarding, rebound, rigid - External exam: Present: normal external exam Speculum exam: Present: vaginal discharge, cervical discharge. Absent: vaginal bleeding, foreign body Bi-manual exam: Absent: cervical motion tendernes, adnexal tenderness, uterine tenderness - Extremities Exam Extremities exam: Present: normal inspection, normal capillary refill - Back Exam Back exam: Present: normal inspection. Absent: CVA tenderness (R), CVA tenderness (L) - Neurological Exam Neurological exam: Present: alert, oriented X3, normal gait - Psychiatric Psychiatric exam: Present: normal affect, normal mood - Skin Skin exam: Present: warm, dry, normal color. Absent: other (Noted to have mo stly healed lesions to 2 areas on face, 2-3 on bilateral arms, 1 on back, and one to upper gluteal area. No erythema or drainage noted.) ED Course Vital Signs 11/24/21 08:00 Temperature 98.4 F Pulse Rate 85 Respiratory 18 Rate Blood Pressure 116/75 [Left] O2 Sat by Pulse 99 Oximetry ED Medical Decision Making - Medical Decision Making 51-year-old black female with no past medical history presents to the emergency department for evaluation of few day history of vaginal discharge, fever, and abdominal pain. She denies dysuria, nausea, and vomiting. She states that she has had unprotected sex with both her old partner and a new partner. She also complains of unhealed sores to her face and her bilateral arms and back. Wet prep positive for bacterial vaginosis and trichomonas. Urine negative for urinary tract infection. Patient will be treated with 7-day course of Flagyl and given Bactroban to place on sores. She is advised to take medications as prescribed and follow-up with her primary care provider if no improvement or worsening symptoms. She is advised to return to the emergency department as needed. She verbalizes understanding of and agreement with plan of care. Critical care attestation.: If time is entered above; I have spent that time in minutes in the direct care of this critically ill patient, excluding procedure time. ED Disposition Clinical Impression: Bacterial vaginosis, Trichomonas infection, Skin sore Disposition: HOME / SELF CARE / HOMELESS Is pt being admited?: No Does the pt Need Aspirin: No Condition: Stable Instructions: Bacterial Vaginosis (ED), Bacterial Vaginosis, [id number], Antibiotic Medicine, Adult, [id number], Trichomoniasis Additional Instructions: Take medications as prescribed. Follow-up with primary care provider if no improvement or worsening symptoms. Return to the emergency department as needed. Prescriptions: Mupirocin [Bactroban 2%] 1 applic TP BID #1 tube metroNIDAZOLE [Flagyl] 500 mg PO Q12HR 7 Days #14 tab Referrals: FITO RODRIGUEZ MD [Primary Care Provider] - 3-5 Days Forms: STI Treatment and Prevention Time of Disposition: 12:17
[2021-11-24 13:19] VITALS: BP 108/72
== END 2021-11-24 13:29 | disposition home or self-care (01) ==
LOC: ED 07:14
DX: N76.0 Acute vaginitis (principal); B96.89 Other specified bacterial agents as the cause of diseases classified elsewhere; A59.9 Trichomoniasis, unspecified; L98.9 Disorder of the skin and subcutaneous tissue, unspecified; F17.200 Nicotine dependence, unspecified, uncomplicated; Z79.899 Other long term (current) drug therapy
CPT/HCPCS: 81001; 87086; 87210; 99283; 99284

== ENCOUNTER 2021-12-17 11:38 | Emergency (ER) | payer MEDICAID ==
[2021-12-17 12:27] VITALS: BP 107/74
--- NOTE | 2021-12-17 13:02 | Emergency Department Report ---
ED ENT HPI - General Chief complaint: Sore Throat Stated complaint: THROAT SWOLLEN Time Seen by Provider: 12/17/21 12:21 Source: patient Mode of arrival: Ambulatory Limitations: No Limitations - History of Present Illness Initial comments: This is a 51-year-old female nontoxic, well nourished in appearance, no acute signs of distress presents to the ED with c/o of sore throat x several days. Patient describes sore throat as swallowing razer blades. Patient denies any fever, chills, headache, stiff neck, nausea, vomiting, chest pain, shortness of breath, numbness or tingling. Patient denies any drooling or hoarseness. Patient denies any allergies or significant past medical history. MD complaint: sore throat -: days(s) Location: throat Severity: mild Severity scale (0 -10): 8 Quality: aching Consistency: constant Improves with: none Worsens with: swallowing Associated Symptoms: pain with swallowing, sore throat. denies: fever, cough, gum swelling, toothache, tinnitus, hearing loss, discharge from ear, rhinorrhea - Related Data Previous Rx's Medication Instructions Recorded Last Taken Type HYDROcodone/APAP 5-325 [[place] 1 each PO Q6HR PRN #14 tablet 11/30/13 Unknown Rx 5/325] Sulfamethoxazole/Trimethoprim 1 each PO BID #14 tablet 11/30/13 Unknown Rx [Bactrim Ds] miSOPROStoL [Cytotec] 400 mcg PO Q4H #3 tablet 11/30/13 Unknown Rx Acetaminophen/Codeine [Tylenol #3] 1 tab PO Q6H PRN #20 tab 09/27/14 Unknown Rx Naproxen [Naprosyn] 500 mg PO BID #30 tablet 05/31/16 Unknown Rx Ibuprofen [Motrin] 800 mg PO Q8HR PRN #30 tablet 06/25/16 Unknown Rx traMADoL [Ultram 50 MG tab] 50 mg PO Q6HR PRN #20 tablet 06/25/16 Unknown Rx Acetaminophen [Acetaminophen TAB] 500 mg PO Q6HR PRN #30 tablet 01/17/17 Unknown Rx Sulfamethoxazole/Trimethoprim 1 each PO BID #14 tablet 02/29/20 Unknown Rx [Bactrim DS TAB] Clindamycin [Clindamycin CAP] 300 mg PO Q8H 10 Days #30 cap 03/16/20 Unknown Rx Permethrin 5% [Acticin 5% CREAM] 1 applicatio TP ONCE #1 tube 05/07/20 Unknown Rx Clindamycin [Clindamycin CAP] 300 mg PO Q8H #21 cap 07/11/20 Unknown Rx Naproxen 500 mg PO Q12H PRN #12 tablet 07/11/20 Unknown Rx cephALEXin [Keflex] 500 mg PO Q12HR 10 Days #20 cap 10/10/20 Unknown Rx predniSONE [Deltasone] 40 mg PO QDAY #10 tab 10/10/20 Unknown Rx Mupirocin [Bactroban 2% OINT] 1 applic TP TID #1 tube 11/17/20 Unknown Rx Permethrin 5% [Acticin 5% CREAM] 1 applicatio TP ONCE #1 tube 11/17/20 Unknown Rx cephALEXin [Keflex] 500 mg PO QID 7 Days #28 cap 11/17/20 Unknown Rx Permethrin 5% [Acticin 5% CREAM] 1 applicatio TP ONCE #1 tube 12/14/20 Unknown Rx Amoxicillin [Trimox CAP] 500 mg PO BID #20 capsule 11/22/21 Unknown Rx Mupirocin [Bactroban 2%] 1 applic TP BID #1 tube 11/24/21 Unknown Rx metroNIDAZOLE [Flagyl] 500 mg PO Q12HR 7 Days #14 tab 11/24/21 Unknown Rx Amoxicillin/K Clav Tab [Augmentin 1 tab PO Q12HR #20 tab 12/17/21 Unknown Rx 875 mg] Nystas/Diphen/Xyl Visc/Mylanta 15 ml MM Q8H PRN 5 Days #1 bottle 12/17/21 Unknown Rx [Magic Mouthwash] Allergies Allergy/AdvReac Type Severity Reaction Status Date / Time No Known Allergies Allergy Verified 11/17/21 14:06 ED Dental HPI - General Chief complaint: Sore Throat Stated complaint: THROAT SWOLLEN Time Seen by Provider: 12/17/21 12:21 Source: patient Mode of arrival: Ambulatory Limitations: No Limitations - Related Data Previous Rx's Medication Instructions Recorded Last Taken Type HYDROcodone/APAP 5-325 [[place] 1 each PO Q6HR PRN #14 tablet 11/30/13 Unknown Rx 5/325] Sulfamethoxazole/Trimethoprim 1 each PO BID #14 tablet 11/30/13 Unknown Rx [Bactrim Ds] miSOPROStoL [Cytotec] 400 mcg PO Q4H #3 tablet 11/30/13 Unknown Rx Acetaminophen/Codeine [Tylenol #3] 1 tab PO Q6H PRN #20 tab 09/27/14 Unknown Rx Naproxen [Naprosyn] 500 mg PO BID #30 tablet 05/31/16 Unknown Rx Ibuprofen [Motrin] 800 mg PO Q8HR PRN #30 tablet 06/25/16 Unknown Rx traMADoL [Ultram 50 MG tab] 50 mg PO Q6HR PRN #20 tablet 06/25/16 Unknown Rx Acetaminophen [Acetaminophen TAB] 500 mg PO Q6HR PRN #30 tablet 01/17/17 Unknown Rx Sulfamethoxazole/Trimethoprim 1 each PO BID #14 tablet 02/29/20 Unknown Rx [Bactrim DS TAB] Clindamycin [Clindamycin CAP] 300 mg PO Q8H 10 Days #30 cap 03/16/20 Unknown Rx Permethrin 5% [Acticin 5% CREAM] 1 applicatio TP ONCE #1 tube 05/07/20 Unknown Rx Clindamycin [Clindamycin CAP] 300 mg PO Q8H #21 cap 07/11/20 Unknown Rx Naproxen 500 mg PO Q12H PRN #12 tablet 07/11/20 Unknown Rx cephALEXin [Keflex] 500 mg PO Q12HR 10 Days #20 cap 10/10/20 Unknown Rx predniSONE [Deltasone] 40 mg PO QDAY #10 tab 10/10/20 Unknown Rx Mupirocin [Bactroban 2% OINT] 1 applic TP TID #1 tube 11/17/20 Unknown Rx Permethrin 5% [Acticin 5% CREAM] 1 applicatio TP ONCE #1 tube 11/17/20 Unknown Rx cephALEXin [Keflex] 500 mg PO QID 7 Days #28 cap 11/17/20 Unknown Rx Permethrin 5% [Acticin 5% CREAM] 1 applicatio TP ONCE #1 tube 12/14/20 Unknown Rx Amoxicillin [Trimox CAP] 500 mg PO BID #20 capsule 11/22/21 Unknown Rx Mupirocin [Bactroban 2%] 1 applic TP BID #1 tube 11/24/21 Unknown Rx metroNIDAZOLE [Flagyl] 500 mg PO Q12HR 7 Days #14 tab 11/24/21 Unknown Rx Amoxicillin/K Clav Tab [Augmentin 1 tab PO Q12HR #20 tab 12/17/21 Unknown Rx 875 mg] Nystas/Diphen/Xyl Visc/Mylanta 15 ml MM Q8H PRN 5 Days #1 bottle 12/17/21 Unknown Rx [Magic Mouthwash] Allergies Allergy/AdvReac Type Severity Reaction Status Date / Time No Known Allergies Allergy Verified 11/17/21 14:06 ED Review of Systems ROS: Stated complaint: THROAT SWOLLEN Other details as noted in HPI Comment: All other systems reviewed and negative Constitutional: denies: chills, fever Eyes: denies: eye pain, eye discharge, vision change ENT: throat pain. denies: ear pain Respiratory: denies: cough, shortness of breath, wheezing Cardiovascular: denies: chest pain, palpitations Endocrine: no symptoms reported Gastrointestinal: denies: abdominal pain, nausea, diarrhea Genitourinary: denies: urgency, dysuria, discharge Musculoskeletal: denies: back pain, joint swelling, arthralgia Skin: denies: rash, lesions Neurological: denies: headache, weakness, paresthesias Psychiatric: denies: anxiety, depression Hematological/Lymphatic: denies: easy bleeding, easy bruising ED Past Medical Hx - Past Medical History Previous Medical History?: No Additional medical history: Skin rash - Surgical History Past Surgical History?: No - Social History Smoking Status: Current Every Day Smoker - Medications Home Medications: Home Medications Medication Instructions Recorded Confirmed Last Taken Type HYDROcodone/APAP 5-325 [[place] 1 each PO Q6HR PRN #14 tablet 11/30/13 Unknown Rx 5/325] Sulfamethoxazole/Trimethoprim 1 each PO BID #14 tablet 11/30/13 Unknown Rx [Bactrim Ds] miSOPROStoL [Cytotec] 400 mcg PO Q4H #3 tablet 11/30/13 Unknown Rx Acetaminophen/Codeine [Tylenol #3] 1 tab PO Q6H PRN #20 tab 09/27/14 Unknown Rx Naproxen [Naprosyn] 500 mg PO BID #30 tablet 05/31/16 Unknown Rx Ibuprofen [Motrin] 800 mg PO Q8HR PRN #30 tablet 06/25/16 Unknown Rx traMADoL [Ultram 50 MG tab] 50 mg PO Q6HR PRN #20 tablet 06/25/16 Unknown Rx Acetaminophen [Acetaminophen TAB] 500 mg PO Q6HR PRN #30 tablet 01/17/17 Unknown Rx Sulfamethoxazole/Trimethoprim 1 each PO BID #14 tablet 02/29/20 Unknown Rx [Bactrim DS TAB] Clindamycin [Clindamycin CAP] 300 mg PO Q8H 10 Days #30 cap 03/16/20 Unknown Rx Permethrin 5% [Acticin 5% CREAM] 1 applicatio TP ONCE #1 tube 05/07/20 Unknown Rx Clindamycin [Clindamycin CAP] 300 mg PO Q8H #21 cap 07/11/20 Unknown Rx Naproxen 500 mg PO Q12H PRN #12 tablet 07/11/20 Unknown Rx cephALEXin [Keflex] 500 mg PO Q12HR 10 Days #20 cap 10/10/20 Unknown Rx predniSONE [Deltasone] 40 mg PO QDAY #10 tab 10/10/20 Unknown Rx Mupirocin [Bactroban 2% OINT] 1 applic TP TID #1 tube 11/17/20 Unknown Rx Permethrin 5% [Acticin 5% CREAM] 1 applicatio TP ONCE #1 tube 11/17/20 Unknown Rx cephALEXin [Keflex] 500 mg PO QID 7 Days #28 cap 11/17/20 Unknown Rx Permethrin 5% [Acticin 5% CREAM] 1 applicatio TP ONCE #1 tube 12/14/20 Unknown Rx Amoxicillin [Trimox CAP] 500 mg PO BID #20 capsule 11/22/21 Unknown Rx Mupirocin [Bactroban 2%] 1 applic TP BID #1 tube 11/24/21 Unknown Rx metroNIDAZOLE [Flagyl] 500 mg PO Q12HR 7 Days #14 tab 11/24/21 Unknown Rx Amoxicillin/K Clav Tab [Augmentin 1 tab PO Q12HR #20 tab 12/17/21 Unknown Rx 875 mg] Nystas/Diphen/Xyl Visc/Mylanta 15 ml MM Q8H PRN 5 Days #1 bottle 12/17/21 Unknown Rx [Magic Mouthwash] ED Physical Exam - General Limitations: No Limitations General appearance: alert, in no apparent distress - Head Head exam: Present: atraumatic, normocephalic - Eye Eye exam: Present: normal appearance - Expanded ENT Exam Expanded Ear exam: Present: normal external inspection Mouth exam: Present: normal external inspection, tongue normal. Absent: drooling, trismus, muffled voice Teeth exam: Present: normal inspection Throat exam: Positive: tonsillar erythema, tonsillomegaly (2+ bilateral), tonsillar exudate (bilateral), other (uvula midline. no tonsillar abscess). Negative: R peritonsillar mass, L peritonsillar mass - Neck Neck exam: Present: normal inspection, full ROM. Absent: tenderness, meningismus, lymphadenopathy - Respiratory Respiratory exam: Absent: respiratory distress - Cardiovascular Cardiovascular Exam: Present: regular rate - Extremities Exam Extremities exam: Present: full ROM - Back Exam Back exam: Present: full ROM - Neurological Exam Neurological exam: Present: alert, oriented X3, normal gait - Psychiatric Psychiatric exam: Present: normal affect, normal mood - Skin Skin exam: Present: warm, dry, intact, normal color. Absent: rash ED Course Vital Signs 12/17/21 12:20 Temperature 99.4 F Pulse Rate 104 H Respiratory 18 Rate Blood Pressure 107/74 [Left] O2 Sat by Pulse 100 Oximetry - Reevaluation(s) Reevaluation #1: 12/17/21 13:00 Patient is speaking in full sentences with no signs of distress noted. ED Medical Decision Making - Medical Decision Making This is a 51-year-old female that presents with tonsillitis with exudate. Patient is stable was examined by me. There is no drooling. No tonsillar abscess noted. Uvula is midline. I will discharge patient with Augmentin. Vital signs are stable. Patient is not febrile and normal heart rate. Patient was instructed to Follow-up with a primary care doctor in 3-5 days or if symptoms worsen and continue return to emergency room as soon as possible. At time of discharge, the patient does not seem toxic or ill in appearance. No acute signs of distress noted. Patient agrees to discharge treatment plan of care. No further questions noted by the patient. Critical care attestation.: If time is entered above; I have spent that time in minutes in the direct care of this critically ill patient, excluding procedure time. ED Disposition Clinical Impression: Tonsillitis with exudate Disposition: HOME / SELF CARE / HOMELESS Is pt being admited?: No Does the pt Need Aspirin: No Condition: Stable Instructions: Tonsillitis, [id number]-[id number] Additional Instructions: Follow-up with a primary care doctor in 3-5 days or if symptoms worsen and continue return to emergency room as soon as possible. Prescriptions: Amoxicillin/K Clav Tab [Augmentin 875 mg] 1 tab PO Q12HR #20 tab Nystas/Diphen/Xyl Visc/Mylanta [Magic Mouthwash] 15 ml MM Q8H PRN 5 Days #1 bottle PRN Reason: Sore Throat Referrals: PRIMARY CAREMD [Referring] - 3-5 Days FITO RODRIGUEZ MD [Staff Physician] - 3-5 Days Time of Disposition: 13:02
== END 2021-12-17 13:33 | disposition home or self-care (01) ==
LOC: ED 11:38
DX: J03.90 Acute tonsillitis, unspecified (principal); F17.200 Nicotine dependence, unspecified, uncomplicated; Z79.899 Other long term (current) drug therapy
CPT/HCPCS: 99282